=== PATIENT | male | born 1955 | race Hispanic/Latino ===

== ENCOUNTER 2016-08-12 07:52 | Inpatient (IN) | payer MEDICAID ==
[2016-08-12 07:53] VITALS: BMI 23.3
[2016-08-12 08:37] LABS: BASO # 0.1 K/uL (0.0-0.2); BASO % 0.7 % (0.0-2.0); EOS # 0.3 K/uL (0.0-0.7); EOS % 3.4 % (0.0-4.0); HEMOGLOBIN 12.7 g/dL (12.0-18.0); LYMPH # 2.5 K/uL (1.0-4.3); LYMPH % 31.7 % (20.0-40.0); MEAN CELL VOLUME 89.9 fl (80.0-94.0); MEAN CORPUSCULAR HEMOGLOBIN 31.1 pg (27.0-31.0); MEAN CORPUSCULAR HGB CONC 34.6 g/dL (33.0-37.0); MEAN PLATELET VOLUME 8.5 fl (7.2-11.7); MONO # 0.7 K/uL (0.0-0.8); MONO % 8.9 % (0.0-10.0); NEUT # 4.3 K/uL (1.8-7.0); NEUT % 55.3 % (50.0-75.0); NRBC % 0.1 % (0.0-0.0); RBC 4.08 Mil/uL (4.40-5.90); RED CELL DISTRIBUTION WIDTH 13.6 % (11.5-14.5); WHITE BLOOD COUNT 7.8 K/uL (4.8-10.8)
--- NOTE | 2016-08-12 08:39 | CT ---
PROCEDURE: CT HEAD WITHOUT CONTRAST. HISTORY: code stroke COMPARISON: 10/18/2015 TECHNIQUE: Axial computed tomography images were obtained through the head/brain without intravenous contrast. Radiation dose: Total exam DLP = 1412.83 mGy-cm. This CT exam was performed using one or more of the following dose reduction techniques: Automated exposure control, adjustment of the mA and/or kV according to patient size, and/or use of iterative reconstruction technique. FINDINGS: HEMORRHAGE: No intracranial hemorrhage. BRAIN: Extension of previously seen left cerebral hemispheric areas of encephalomalacia likely consistent with multiple old infarcts. The areas of encephalomalacia has increased involving the majority of the left cerebral hemisphere. New areas of hypodensities noted in the left peripheral frontal lobe. Subacute infarcts cannot be entirely excluded. Patchy and confluent hypodensities throughout the bilateral cerebral hemispheric white matter are most likely from chronic small vessel ischemic changes. VENTRICLES: Ex vacuo dilatation of the left lateral ventricle has also increased in extent when compared to the prior CT from 10/18/2015. CALVARIUM: Unremarkable. PARANASAL SINUSES: Unremarkable as visualized. No significant inflammatory changes. MASTOID AIR CELLS: Unremarkable as visualized. No inflammatory changes. OTHER FINDINGS: None. IMPRESSION: Resolution of previously seen left-sided CVA with bowel extending more into the white matter of the left cerebral hemisphere. However, a small underlying acute/subacute infarct cannot be entirely excluded given the scattered hyperdensities. Other findings as above. Discussed with Dr. Nogueira at approximately 8:35 a.m. on 08/12/2016.
--- NOTE | 2016-08-12 08:59 | ED PDOC ---
HPI: Seizure Time Seen by Provider: 08/12/16 07:55 Chief Complaint (Nursing): Syncope Chief Complaint (Provider): Seizure History Per: Family () Additional Complaint(s): 61 y/o male with a past medical history of hypertension, diabetes, and cerebrovascular accident (CVA) with right-sided weakness who presents to the emergency department via EMS accompanied by after she witnessed patient put his head down, stopped talking, and then started shaking around 6am this morning. Denies history of seizures or falls. NIHSS Stroke Scale - Date/Time Evaluation Performed Date Performed: 08/12/16 Time Performed: 07:50 When Was NIHSS Performed: Baseline - How Severe is the Stroke Level of Consciousness: 0=Alert LOC to Questions: 0=Both comments correct Best Gaze: 0=Normal Visual: 0=No visual loss Facial: 0=Normal Motor Arm - Left: 0=No drift Motor Arm - Right: 2=Falls before 10 sec Motor Leg - Left: 0=No drift Motor Leg - Right: 0=No drift Limb Ataxia: 0=Absent Sensory: 0=Normal Best Language: 0=No aphasia Dysarthia: 0=Normal articulation Extinction & Inattention (Neglect): 0=Normal, no object rTPA Inclusion/Exclusion - Refusal of Treatment Patient Refused Treatment: No - Inclusion Criteria for Altepase Patient is 18 years or Older: Yes The Clinical Diagnosis of Ischemic Stroke That is Causing a Potentially Disabling Neurological Deficit: No Time of Onset is Well Established to be Less Than 270 Minute Before Treatment Would Begin: No Risk/Benefit Discussed With Patient/Family Member Present: No - Exclusion Criteria for Altepase Uncontrolled Hypertension at Time of Treatment (Systolic BP above 185 or Diastolic BP above 110 mmHg): No Active Internal Bleeding: No Known Bleeding Diathesis Including but Not Limited to: Platelets Below 100,000/ mm,PTT Above 40 sec After Heparin Use, Current Use of Oral Anitcoagulant With INR Greater Than 1.7 or PT Greater Than 15 secs: No Evidence of an Intracranial Hemorrhage: No Evidence of Major Acute Infarct With Signs Greater Than 1/3 MCA Territory: No Suspicion of Subarachnoid Hemorrhage on Pretreatment Evaluation Even if CT Head Negative For Hemorrhage: No Past Medical History Reviewed: Historical Data, Nursing Documentation, Vital Signs Vital Signs: Last Vital Signs Temp 97.8 F 08/12/16 12:11 Pulse 77 08/12/16 12:11 Resp 18 08/12/16 12:11 BP 113/66 08/12/16 12:11 Pulse Ox 99 08/12/16 12:11 - Medical History PMH: CVA (with right sided weakness), Diabetes, HTN, Hypercholesterolemia Denies: Chronic Kidney Disease - Surgical History Surgical History: No Surg Hx - Family History Family History: States: Unknown Family Hx - Living Arrangements Living Arrangements: With Family - Social History Current smoker - smoking cessation education provided: No Alcohol: Occasional Drugs: Denies - Home Medications Home Medications: Ambulatory Orders Medication Instructions Recorded Atorvastatin [Lipitor] 80 mg PO HS 08/25/15 Bisacodyl [Dulcolax] 10 mg AL DAILY PRN 08/25/15 Famotidine [Pepcid] 20 mg PO DAILY 08/25/15 Insulin Lispro [Humalog] 2 - 8 units SQ ACTID 08/25/15 Lisinopril [Zestril] 2.5 mg PO DAILY 08/25/15 Metoprolol Succinate 25 mg PO DAILY 08/25/15 Sertraline [Zoloft] 25 mg PO DAILY 08/25/15 Tamsulosin [Flomax] 0.4 mg PO HS 08/25/15 Acetaminophen [Tylenol 325mg tab] 325 mg PO Q6 PRN #0 tab 09/17/15 Acetaminophen [Tylenol 325mg tab] 650 mg PO Q6 PRN #0 tab 09/17/15 Aspirin [Ecotrin] 81 mg PO DAILY tabec 09/17/15 GlipiZIDE [Glucotrol] 10 mg PO BIDAC tab 09/17/15 Pantoprazole [Protonix Susp] 40 mg PO DAILY packet 09/17/15 SITagliptin [Januvia] 100 mg PO ACD tab 09/17/15 Cyclobenzaprine [Flexeril] 5 mg PO TID #9 tab 04/21/16 Ibuprofen [Motrin] 400 mg PO TID #20 tab 04/21/16 - Allergies Allergies/Adverse Reactions: Allergies Allergy/AdvReac Type Severity Reaction Status Date / Time No Known Allergies Allergy Verified 07/28/15 22:01 Review of Systems ROS Statement: Except As Marked, All Systems Reviewed And Found Negative Constitutional: Negative for: Other (no falls) Physical Exam - Reviewed Nursing Documentation Reviewed: Yes Vital Signs Reviewed: Yes - Physical Exam Appears: Positive for: Non-toxic, No Acute Distress Head Exam: Positive for: ATRAUMATIC, NORMAL INSPECTION, NORMOCEPHALIC Skin: Positive for: Normal Color, Warm, Dry Neck: Positive for: Normal, Supple Cardiovascular/Chest: Positive for: Regular Rate, Rhythm. Negative for: Murmur Respiratory: Positive for: Normal Breath Sounds. Negative for: Accessory Muscle Use, Respiratory Distress Extremity: Positive for: Normal ROM, Other (Right-sided weakness to the right upper extremity. Lower right and leg are good in strength. ) Neurologic/Psych: Positive for: Alert, Oriented - Laboratory Results Result Diagrams: 08/12/16 08:20 08/12/16 08:20 - ECG O2 Sat by Pulse Oximetry: 97 (RA) Pulse Ox Interpretation: Normal Medical Decision Making Medical Decision Making: Time: 08:09 Initial impression: Seizure Initial plan: --Head CT --Type and Screen --Electrocardiogram --COMP Metabolic Panel --Hemoglobin A1C --Lipid panel --Troponin I Stat --EKG-ED --Partial Thromboplastin Time (COAG) --Prothrombin Time (COAG) --Chest Portable (RAD) --security monitor CONT --IV Insertion Time: 8:37 --Head CT FINDINGS: HEMORRHAGE: No intracranial hemorrhage. BRAIN: Extension of previously seen left cerebral hemispheric areas of encephalomalacia likely consistent with multiple old infarcts. The areas of encephalomalacia has increased involving the majority of the left cerebral hemisphere. New areas of hypodensities noted in the left peripheral frontal lobe. Subacute infarcts cannot be entirely excluded. Patchy and confluent hypodensities throughout the bilateral cerebral hemispheric white matter are most likely from chronic small vessel ischemic changes. VENTRICLES: Ex vacuo dilatation of the left lateral ventricle has also increased in extent when compared to the prior CT from 10/18/2015. CALVARIUM: Unremarkable. PARANASAL SINUSES: Unremarkable as visualized. No significant inflammatory changes. MASTOID AIR CELLS: Unremarkable as visualized. No inflammatory changes. OTHER FINDINGS: None. IMPRESSION: Resolution of previously seen left-sided CVA with bowel extending more into the white matter of the left cerebral hemisphere. However, a small underlying acute/ subacute infarct cannot be entirely excluded given the scattered hyperdensities. Other findings as above. Discussed with Dr. Nogueira at approximately 8:35 a.m. on 08/12/2016. Time: 9:11 --Chest X-ray FINDINGS: LUNGS: No focal airspace opacity. PLEURA: No significant pleural effusion identified, no pneumothorax apparent.Biapical pleural parenchymal thickening noted. Previously identified right pleural effusion not seen. CARDIOVASCULAR: Normal. OSSEOUS STRUCTURES: The osseous structures demonstrate degenerative changes. VISUALIZED UPPER ABDOMEN: Upper abdomen is suboptimally evaluated. OTHER FINDINGS: None. IMPRESSION: No focal airspace opacity. Time: 09:20 --EKG: Normal sinus rhythm at 84 bpm with low voltage. --Neurology Consult Routine: Spoke to Dr. Derek Marie who advised not to give patient aspirin due to history of hemorrhagic stroke. Recommended to give patient 500 mg of Keppra because story sounded like seizure and an MRI and EEG to get completed tomorrow. will not give asa due to prior hemmoragic stroke --Admit to hospital routine: Admitted as inpatient to telemetry for stroke versus seizure under the care of Dr. Gregory Edge --Keppra 500 mg Scribe Attestation: Documented by Racheal Mendez, acting as a scribe for Michel Macdonald MD. Provider Scribe Attestation: All medical record entries made by the Scribe were at my direction and personally dictated by me. I have reviewed the chart and agree that the record accurately reflects my personal performance of the history, physical exam, medical decision making, and the department course for this patient. I have also personally directed, reviewed, and agree with the discharge instructions and disposition. Disposition - Clinical Impression Clinical Impression: Seizure - Patient ED Disposition Is Patient to be Admitted: Yes - Disposition Disposition Time: 09:00 Condition: STABLE
[2016-08-12 09:05] LABS: ALB/GLOB RATIO 1.4 (1.0-2.1); ALBUMIN 4.1 g/dL (3.5-5.0); ALT/SGPT 51 U/L (21-72); AST/SGOT 27 U/L (17-59); BLOOD UREA NITROGEN 20 mg/dl (9-20); CALCIUM 9.2 mg/dL (8.4-10.2); GFR AFRICAN-AMERICAN > 60; GFR NON-AFRICAN AMERICAN > 60; HDL CHOLESTEROL 49 MG/DL (30-70)
[2016-08-12 09:12] LABS: INR 1.1 (0.9-1.2); PARTIAL THROMBOPLASTIN TIME 28.6 Seconds (25.6-37.1); PROTHROMBIN TIME 12.3 Seconds (9.8-13.1)
--- NOTE | 2016-08-12 09:13 | RAD ---
HISTORY: code stroke COMPARISON: 07/28/2015 FINDINGS: LUNGS: No focal airspace opacity. PLEURA: No significant pleural effusion identified, no pneumothorax apparent.Biapical pleural parenchymal thickening noted. Previously identified right pleural effusion not seen. CARDIOVASCULAR: Normal. OSSEOUS STRUCTURES: The osseous structures demonstrate degenerative changes. VISUALIZED UPPER ABDOMEN: Upper abdomen is suboptimally evaluated. OTHER FINDINGS: None. IMPRESSION: No focal airspace opacity.
[2016-08-12 09:16] LABS: LDL CHOLESTEROL 50 mg/dL (0-129)
[2016-08-12] MEDS ORDERED: levETIRAcetam 500 MG in Sodium Chloride 0.9% 100 ML IVPB STA (09:19)
--- NOTE | 2016-08-12 09:52 | CARD ---
APPROVED REPORT EKG Measurement Heart [id number] CO [id number] [id number] <Conclusion> Normal sinus rhythm Low voltage QRS Septal infarct, age undetermined Abnormal ECG
--- NOTE | 2016-08-12 10:40 | CP.PCM.HP ---
History of Present Illness - History of Present Illness History of Present Illness: 61 yo male with history of previous CVA with residual right sided weakness and aphasia, CAD, DM2, HTN and HLD was noted by this morning with his head down while sitting on a sofa. She was checking him out when he suddenly went into generalized seizure followed with loss of consciousness. His called 911 and patient was still unconscious when EMS arrived. He only regained consciousness when EMS was about to carry him out to the hospital. There was no involuntary micturition and patient did not appear confuse. He denied chest pain , SOB or headache. Present on Admission - Present on Admission Any Indicators Present on Admission: No History of DVT/PE: No History of Uncontrolled Diabetes: No Urinary Catheter: No Decubitus Ulcer Present: No Review of Systems - Review of Systems Systems not reviewed;Unavailable: Language Barrier (aphasic) Past Patient History - Tetanus Immunizations Tetanus Immunization: Unknown - Past Medical History & Family History Past Medical History?: Yes Pertinent Family History: unable to provide - Past Social History Smoking Status: Never Smoked Alcohol: Occasional Drugs: Denies Home Situation {Lives}: Other (with ) - CARDIAC Hx Cardiac Disorders: Yes (HTN,HLD) Hx Heart Attack: Yes (NSTEMI, 2016) Hx Hypercholesterolemia: Yes Hx Hypertension: Yes - PULMONARY Hx Respiratory Disorders: No - NEUROLOGICAL Hx Neurological Disorder: Yes (CVA) HX Cerebrovascular Accident: Yes - HEENT Hx HEENT Problems: No - RENAL Hx Chronic Kidney Disease: No - ENDOCRINE/METABOLIC Hx Endocrine Disorders: Yes Hx Diabetes Mellitus Type 2: Yes - HEMATOLOGICAL/ONCOLOGICAL Hx Blood Disorders: No - INTEGUMENTARY Hx Dermatological Problems: No - MUSCULOSKELETAL/RHEUMATOLOGICAL Hx Musculoskeletal Disorders: No - GASTROINTESTINAL Hx Gastrointestinal Disorders: No - GENITOURINARY/GYNECOLOGICAL Hx Genitourinary Disorders: No - PSYCHIATRIC Hx Psychophysiologic Disorder: No - SURGICAL HISTORY Hx Surgeries: No - ANESTHESIA Hx Anesthesia: No Meds Allergies/Adverse Reactions: Allergies Allergy/AdvReac Type Severity Reaction Status Date / Time No Known Allergies Allergy Verified 07/28/15 22:01 Physical Exam - Constitutional Appears: No Acute Distress - Head Exam Head Exam: ATRAUMATIC - Eye Exam Eye Exam: absent: Scleral icterus - ENT Exam ENT Exam: Mucous Membranes Moist - Neck Exam Neck exam: Negative for: Meningismus - Respiratory Exam Respiratory Exam: absent: Rhonchi, Wheezes, Respiratory Distress - Cardiovascular Exam Cardiovascular Exam: REGULAR RHYTHM, +S1, +S2 - GI/Abdominal Exam GI & Abdominal Exam: Soft. absent: Tenderness - Rectal Exam Rectal Exam: Deferred - Extremities Exam Extremities exam: Negative for: pedal edema - Neurological Exam Neurological exam: Motor Sensory Deficit (right upper and lower limb weakness) - Psychiatric Exam Psychiatric exam: Flat Affect - Skin Skin Exam: Dry, Intact Results - Vital Signs Recent Vital Signs: Last Vital Signs Temp 97.8 F 08/12/16 09:06 Pulse 78 08/12/16 09:44 Resp 16 08/12/16 09:44 BP 132/69 08/12/16 09:44 Pulse Ox 97 08/12/16 09:36 - Labs Result Diagrams: 08/12/16 08:20 08/12/16 08:20 Assessment & Plan (1) Seizure Status: Acute Comment: admit to telemetry. seizure precaution. Ativan 1mg IV q 4hrs prn. received Keppra 500mg IV per recommendation by neurologist. neurology consult with Dr Marie (called by ER). MRI. EEG (2) History of CVA (cerebrovascular accident) Status: Chronic Comment: refer to PT for evaluation and management. continue ASA, statin and BP control. pt was on 81mg ASA when discharged last year. Dr Marie agreed to continue low dose ASA (3) CAD (coronary artery disease) Status: Chronic Comment: Troponin negative for ischemic events. denied chest pain or SOB. continue ASA, statin and Metoprolol (4) HTN (hypertension) Status: Chronic Comment: BP controlled. continue Lisinopril and Metoprolol (5) HLD (hyperlipidemia) Status: Chronic Comment: Lipitor 80mg PO HS (6) DM2 (diabetes mellitus, type 2) Status: Chronic Comment: BS uncontrolled. continue Januvia and Glucotrol. accuchek ACHS with low Lispro coverage. diabetic diet. HgA1C, BMP in am (7) DVT prophylaxis Status: Acute Comment: Venodyne boots while in bed
[2016-08-12] MEDS: Insulin Lispro (humaLOG) 100 Units/ml Inj SC SCH ×3 (12:45→22:47)
--- NOTE | 2016-08-12 13:30 | CP.PCM.CON ---
History of Present Illness - History of Present Illness History of Present Illness: Mr. Fierro is a 61-year-old man with a past medical history of left MCA ischemic stroke and hemorrhagic conversion who was noted by his to drop his head and developed generalized shaking and abnormal movements. This lasted for several minutes then subsided. The patient has no recollection of the event and says that he felt tired and sleepy afterward. Review of Systems - Review of Systems Systems not reviewed;Unavailable: Other Review of Systems: The patient is aphasic and has a difficult time providing a reliable ROS. Past Patient History - Tetanus Immunizations Tetanus Immunization: Unknown - Past Medical History & Family History Past Medical History?: Yes - Past Social History Smoking Status: Never Smoked - CARDIAC Hx Cardiac Disorders: Yes (HTN,HLD) Hx Heart Attack: Yes (NSTEMI, 2016) Hx Hypercholesterolemia: Yes Hx Hypertension: Yes - PULMONARY Hx Respiratory Disorders: No - NEUROLOGICAL Hx Neurological Disorder: Yes (CVA) HX Cerebrovascular Accident: Yes (07/28/15) - HEENT Hx HEENT Problems: No - RENAL Hx Chronic Kidney Disease: No - ENDOCRINE/METABOLIC Hx Endocrine Disorders: Yes Hx Diabetes Mellitus Type 2: Yes - HEMATOLOGICAL/ONCOLOGICAL Hx Blood Disorders: No Hx AIDS: No Hx Human Immunodeficiency Virus (HIV): No - INTEGUMENTARY Hx Dermatological Problems: No - MUSCULOSKELETAL/RHEUMATOLOGICAL Hx Musculoskeletal Disorders: No Hx Falls: Yes - GASTROINTESTINAL HX Swallowing Problems: Yes (POST PEG TUBE 07/28/15) - GENITOURINARY/GYNECOLOGICAL Hx Genitourinary Disorders: No - PSYCHIATRIC Hx Psychophysiologic Disorder: No Hx Substance Use: No - SURGICAL HISTORY Hx Surgeries: No - ANESTHESIA Hx Anesthesia: Yes Has any member of the family had a problem w/ anesthesia?: No Meds Allergies/Adverse Reactions: Allergies Allergy/AdvReac Type Severity Reaction Status Date / Time No Known Allergies Allergy Verified 07/28/15 22:01 - Medications Medications: Current Medications Acetaminophen (Tylenol 325mg Tab) 650 mg PO Q6 PRN PRN Reason: Pain, severe (8-10) Aspirin (Ecotrin) 81 mg PO DAILY [facility] Last Admin: 08/12/16 12:46 Dose: 81 mg Atorvastatin Calcium (Lipitor) 80 mg PO HS [facility] Bisacodyl (Dulcolax) 10 mg SC DAILY PRN PRN Reason: Constipation Famotidine (Pepcid) 20 mg PO DAILY [facility] Last Admin: 08/12/16 12:48 Dose: 20 mg Glipizide (Glucotrol) 10 mg PO BIDAC [facility] Home Med (Lisinopril [Zestril]) 2.5 mg PO DAILY [facility] Levetiracetam 500 mg/ Sodium (Chloride) 105 mls @ 210 mls/hr IVPB Q12 [facility] Insulin Human Lispro (Humalog) 0 units SC ACHS [facility] PRN Reason: Protocol Last Admin: 08/12/16 12:45 Dose: 1 unit Metoprolol Succinate (Toprol Xl) 25 mg PO DAILY [facility] Sertraline HCl (Zoloft) 25 mg PO DAILY [facility] Sitagliptin Phosphate (Januvia) 100 mg PO ACD [facility] Tamsulosin HCl (Flomax) 0.4 mg PO HS [facility] Physical Exam - Constitutional Appears: Well - Head Exam Head Exam: ATRAUMATIC, NORMAL INSPECTION, NORMOCEPHALIC - Eye Exam Eye Exam: EOMI, Normal appearance, PERRL - ENT Exam ENT Exam: Mucous Membranes Moist, Normal Exam - Neck Exam Neck exam: Positive for: Normal Inspection - Respiratory Exam Respiratory Exam: Clear to Auscultation Bilateral, NORMAL BREATHING PATTERN - Cardiovascular Exam Cardiovascular Exam: REGULAR RHYTHM, +S1, +S2 - GI/Abdominal Exam GI & Abdominal Exam: Normal Bowel Sounds, Soft. absent: Tenderness - Neurological Exam Neurological exam: Abnormal Gait, CN II-XII Intact, Oriented x3 Additional comments: Productive aphasia with difficulty with repetition. Receptive aphasia also present. No dysarthria noted. Right side strength is 3/5 proximally and 4/5 distally, left side strength is 5/5 proximally and distally. He has contractures on the left upper and lower extremity causing difficulty with limb extension. Reflexes are brisk on the right. Plantar response is upgoing on the left. Gait was not assessed. - Psychiatric Exam Psychiatric exam: Normal Affect, Normal Mood - Skin Skin Exam: Dry, Intact, Normal Color, Warm Results - Vital Signs Recent Vital Signs: Last Vital Signs Temp 97.8 F 08/12/16 12:11 Pulse 77 08/12/16 12:11 Resp 18 08/12/16 12:11 BP 113/66 08/12/16 12:11 Pulse Ox 99 08/12/16 12:11 - Labs Result Diagrams: 08/12/16 08:20 08/12/16 08:20 Labs: Laboratory Results - last 24 hr 08/12/16 12:34 POC Glucose (mg/dL) 195 H - Imaging and Cardiology CT scan - head Status: Image reviewed by me, Report reviewed by me (Large chronic left MCA ischemic stroke with slight residual hemorrhagic components and laminar necrosis. ) Assessment & Plan (1) Seizure Assessment and Plan: This is likely due to the previous cortical damage in the left hemisphere. Will start Keppra 500 mg PO BID and obtain an MRI and EEG to evaluate. Continue Q2 hour neuro-checks, seizure precautions, PT/OT eval and treat, secondary stroke prevention with aspirin 81 mg daily. Thank you. Status: Acute Priority: High
[2016-08-12] MEDS ORDERED: levETIRAcetam 500 MG in Sodium Chloride 0.9% 100 ML IVPB SCH (21:00)
[2016-08-12] MEDS ORDERED: Patient's Own Med (Atorvastatin [Lipitor] 80 MG) PO SCH (22:00)
[2016-08-13] MEDS: Insulin Lispro (humaLOG) 100 Units/ml Inj SC SCH ×4 (06:34→22:12)
[2016-08-13 07:04] LABS: BASO % 0.5 % (0.0-2.0); EOS # 0.3 K/uL (0.0-0.7); EOS % 2.7 % (0.0-4.0); HEMOGLOBIN 12.1 g/dL (12.0-18.0); LYMPH # 1.7 K/uL (1.0-4.3); LYMPH % 17.6 % (20.0-40.0); MEAN CELL VOLUME 88.8 fl (80.0-94.0); MEAN CORPUSCULAR HEMOGLOBIN 30.5 pg (27.0-31.0); MEAN CORPUSCULAR HGB CONC 34.4 g/dL (33.0-37.0); MEAN PLATELET VOLUME 8.5 fl (7.2-11.7); MONO # 0.8 K/uL (0.0-0.8); MONO % 8.8 % (0.0-10.0); NEUT # 6.6 K/uL (1.8-7.0); NEUT % 70.4 % (50.0-75.0); RBC 3.95 Mil/uL (4.40-5.90); RED CELL DISTRIBUTION WIDTH 13.1 % (11.5-14.5); WHITE BLOOD COUNT 9.4 K/uL (4.8-10.8)
[2016-08-13 07:24] LABS: BLOOD UREA NITROGEN 23 mg/dl (9-20); CALCIUM 9.2 mg/dL (8.4-10.2); GFR AFRICAN-AMERICAN > 60; GFR NON-AFRICAN AMERICAN > 60
[2016-08-13] MEDS: Metoprolol Succinate 25 mg XL Tab PO SCH (09:13)
--- NOTE | 2016-08-13 13:11 | MRI ---
PROCEDURE: MRI BRAIN WITHOUT CONTRAST HISTORY: new onset seizure COMPARISON: Noncontrast head CT from 08/12/2016. TECHNIQUE: Multiplanar, multisequence MR images of the brain were obtained without intravenous contrast enhancement. FINDINGS: HEMORRHAGE: None DWI: No evidence of an acute or early subacute infarction. BRAIN PARENCHYMA: There is a large area of cystic encephalomalacia and gliosis in the left parietal lobe with cortical laminar necrosis. There is parietal lobe volume loss and ex vacuo dilatation of the left lateral ventricle. There is no mass, mass effect or abnormal extra-axial fluid collection. There are mild chronic microangiopathic changes. The midline sagittal structures are normal. VENTRICLES: There is mild age-related global parenchymal volume loss and proportionate enlargement of the ventricles and cortical sulci. CRANIUM: There is normal bone marrow signal pattern. ORBITS: Grossly unremarkable. PARANASAL SINUSES/MASTOIDS: Predominantly clear. VASCULAR SYSTEM: There are normal signal voids in the larger intracranial arteries. OTHER FINDINGS: None. IMPRESSION: 1. No acute intracranial abnormality. 2. Cystic encephalomalacia and gliosis with cortical laminar necrosis in the left parietal lobe, sequela of remote left MCA territory infarction. 3. Mild chronic microangiopathic changes and mild age-related global parenchymal volume loss.
--- NOTE | 2016-08-13 13:20 | CP.PCM.PN ---
Subjective - Date & Time of Evaluation Date of Evaluation: 08/13/16 Time of Evaluation: 13:00 - Subjective Subjective: Pt seen and examined. Denied any complaint. Unable to converse fully because although he was able to articulate well the statement did not make sense. Had problem getting the right words. Objective - Vital Signs/Intake and Output Vital Signs (last 24 hours): Temp Pulse Resp BP Pulse Ox 98.0 F 73 18 116/69 98 08/13/16 08:34 08/13/16 08:44 08/13/16 08:34 08/13/16 08:44 08/13/16 08:34 - Medications Medications: Current Medications Acetaminophen (Tylenol 325mg Tab) 650 mg PO Q6 PRN PRN Reason: Pain, severe (8-10) Aspirin (Ecotrin) 81 mg PO DAILY [facility] Last Admin: 08/13/16 08:44 Dose: 81 mg Atorvastatin Calcium (Lipitor) 80 mg PO HS [facility] Last Admin: 08/13/16 08:44 Dose: 80 mg Bisacodyl (Dulcolax) 10 mg [place] DAILY PRN PRN Reason: Constipation Famotidine (Pepcid) 20 mg PO DAILY [facility] Last Admin: 08/12/16 12:48 Dose: 20 mg Glipizide (Glucotrol) 10 mg PO BIDAC [facility] Last Admin: 08/13/16 08:28 Dose: 10 mg Levetiracetam 500 mg/ Sodium (Chloride) 105 mls @ 210 mls/hr IVPB Q12 [facility] Last Admin: 08/12/16 21:31 Dose: 210 mls/hr Insulin Human Lispro (Humalog) 0 units SC ACHS [facility] PRN Reason: Protocol Last Admin: 08/13/16 06:34 Dose: Not Given Lisinopril (Zestril) 2.5 mg PO DAILY [facility] Last Admin: 08/13/16 08:44 Dose: 2.5 mg Lisinopril (Zestril) 2.5 mg PO DAILY [facility] Last Admin: 08/12/16 16:49 Dose: 2.5 mg Metoprolol Succinate (Toprol Xl) 25 mg PO DAILY [facility] Sertraline HCl (Zoloft) 25 mg PO DAILY [facility] Last Admin: 08/13/16 08:45 Dose: 25 mg Sitagliptin Phosphate (Januvia) 100 mg PO ACD [facility] Last Admin: 08/12/16 17:59 Dose: 100 mg Tamsulosin HCl (Flomax) 0.4 mg PO HS [facility] Last Admin: 08/12/16 21:31 Dose: 0.4 mg - Labs Labs: 08/13/16 05:00 08/13/16 05:00 PT 12.3 Seconds (9.8-13.1) 08/12/16 08:20 INR 1.1 (0.9-1.2) 08/12/16 08:20 APTT 28.6 Seconds (25.6-37.1) 08/12/16 08:20 - Constitutional Appears: No Acute Distress - Head Exam Head Exam: ATRAUMATIC - Eye Exam Eye Exam: absent: Scleral icterus - ENT Exam ENT Exam: Mucous Membranes Moist - Neck Exam Neck Exam: absent: Meningismus - Respiratory Exam Respiratory Exam: absent: Rhonchi, Wheezes, Respiratory Distress - Cardiovascular Exam Cardiovascular Exam: REGULAR RHYTHM, +S1, +S2 - GI/Abdominal Exam GI & Abdominal Exam: Soft. 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 (1) Seizure no further seizure activity since admission continue seizure precaution. Ativan 1mg IV q 4hrs prn. continue Keppra 500mg IV q 12hrs neurology consult with Dr Marie MRI & EEG results pending (2) History of CVA (cerebrovascular accident) refer to PT for evaluation and management. continue ASA, statin and BP control. Dr Marie agreed to continue low dose ASA (3) CAD (coronary artery disease) asymptomatic continue ASA, statin and Metoprolol (4) HTN (hypertension) BP controlled. continue Lisinopril and Metoprolol (5) HLD (hyperlipidemia) Lipitor 80mg PO HS (6) DM2 (diabetes mellitus, type 2) BS controlled. continue Januvia and Glucotrol. accuchek ACHS with low Lispro coverage. HgA1c: 7.8 (7) DVT prophylaxis Venodyne boots while in bed
--- NOTE | 2016-08-13 16:05 | CP.PCM.PN ---
Subjective - Date & Time of Evaluation Date of Evaluation: 08/13/16 Time of Evaluation: 13:00 - Subjective Subjective: Mr. Fierro was seen and examined at bedside. His was present and informed me that since his seizure, the patient has been more irritable. I expressed my concern that it may actually be from the [place] since it can cause some irritability. I discussed changing to Depakote, which is a good seizure medication that has mood stabilizing effects as well. Furthermore, the patient has had a significant amount of weight loss and Depakote may help with that as well. Objective - Vital Signs/Intake and Output Vital Signs (last 24 hours): Temp Pulse Resp BP Pulse Ox 98.0 F 68 18 102/66 98 08/13/16 08:34 08/13/16 15:42 08/13/16 08:34 08/13/16 15:42 08/13/16 15:42 - Medications Medications: Current Medications Acetaminophen (Tylenol 325mg Tab) 650 mg PO Q6 PRN PRN Reason: Pain, severe (8-10) Aspirin (Ecotrin) 81 mg PO DAILY [facility] Last Admin: 08/13/16 08:44 Dose: 81 mg Atorvastatin Calcium (Lipitor) 80 mg PO HS [facility] Last Admin: 08/13/16 08:44 Dose: 80 mg Bisacodyl (Dulcolax) 10 mg [place] DAILY PRN PRN Reason: Constipation Famotidine (Pepcid) 20 mg PO DAILY [facility] Last Admin: 08/12/16 12:48 Dose: 20 mg Glipizide (Glucotrol) 10 mg PO BIDAC [facility] Last Admin: 08/13/16 08:28 Dose: 10 mg Levetiracetam 500 mg/ Sodium (Chloride) 105 mls @ 210 mls/hr IVPB Q12 [facility] Last Admin: 08/12/16 21:31 Dose: 210 mls/hr Insulin Human Lispro (Humalog) 0 units SC ACHS [facility] PRN Reason: Protocol Last Admin: 08/13/16 06:34 Dose: Not Given Lisinopril (Zestril) 2.5 mg PO DAILY [facility] Last Admin: 08/13/16 08:44 Dose: 2.5 mg Lisinopril (Zestril) 2.5 mg PO DAILY [facility] Last Admin: 08/12/16 16:49 Dose: 2.5 mg Metoprolol Succinate (Toprol Xl) 25 mg PO DAILY [facility] Sertraline HCl (Zoloft) 25 mg PO DAILY [facility] Last Admin: 08/13/16 08:45 Dose: 25 mg Sitagliptin Phosphate (Januvia) 100 mg PO ACD [facility] Last Admin: 08/12/16 17:59 Dose: 100 mg Tamsulosin HCl (Flomax) 0.4 mg PO HS [facility] Last Admin: 08/12/16 21:31 Dose: 0.4 mg - Labs Labs: 08/13/16 05:00 08/13/16 05:00 PT 12.3 Seconds (9.8-13.1) 08/12/16 08:20 INR 1.1 (0.9-1.2) 08/12/16 08:20 APTT 28.6 Seconds (25.6-37.1) 08/12/16 08:20 - Neurological Exam Additional comments: Neurologically unchanged compared with yesterday's examination. Assessment and Plan (1) Seizure Assessment & Plan: Will switch to depakote 500 mg BID and stop Keppra. PT/OT eval is recommended. The patient may benefit from more rehab since he appears to be deconditioned. Status: Acute
[2016-08-13] MEDS: Divalproex 500 mg DR(BID formulation) PO SCH (17:02)
[2016-08-14] MEDS: Insulin Lispro (humaLOG) 100 Units/ml Inj SC SCH ×3 (06:39→13:23)
[2016-08-14] MEDS: Divalproex 500 mg DR(BID formulation) PO SCH (09:47)
[2016-08-14] MEDS: Metoprolol Succinate 25 mg XL Tab PO SCH (09:50)
--- NOTE | 2016-08-14 10:55 | CP.PCM.DIS ---
Provider - Provider Date of Admission: 08/12/16 09:20 Attending physician: Gregory Edge MD Primary care physician: Dr Kahn Consults: Neurology: Dr Marie Time Spent in preparation of Discharge (in minutes): 35 Diagnosis - Discharge Diagnosis (1) Seizure Status: Acute Priority: High (2) History of CVA (cerebrovascular accident) Status: Chronic (3) CAD (coronary artery disease) Status: Chronic (4) DM2 (diabetes mellitus, type 2) Status: Chronic (5) HLD (hyperlipidemia) Status: Chronic (6) HTN (hypertension) Status: Chronic (7) DVT prophylaxis Status: Acute Hospital Course - Lab Results Lab Results: Most Recent Lab Values WBC 9.4 K/uL (4.8-10.8) 08/13/16 05:00 RBC 3.95 Mil/uL (4.40-5.90) L 08/13/16 05:00 Hgb 12.1 g/dL (12.0-18.0) 08/13/16 05:00 Hct 35.1 % (35.0-51.0) 08/13/16 05:00 MCV 88.8 fl (80.0-94.0) 08/13/16 05:00 MCH 30.5 pg (27.0-31.0) 08/13/16 05:00 MCHC 34.4 g/dL (33.0-37.0) 08/13/16 05:00 RDW 13.1 % (11.5-14.5) 08/13/16 05:00 Plt Count 165 K/uL (130-400) 08/13/16 05:00 MPV 8.5 fl (7.2-11.7) 08/13/16 05:00 Neut % (Auto) 70.4 % (50.0-75.0) 08/13/16 05:00 Lymph % (Auto) 17.6 % (20.0-40.0) L 08/13/16 05:00 [place] % (Auto) 8.8 % (0.0-10.0) 08/13/16 05:00 Eos % (Auto) 2.7 % (0.0-4.0) 08/13/16 05:00 Baso % (Auto) 0.5 % (0.0-2.0) 08/13/16 05:00 Neut # 6.6 K/uL (1.8-7.0) 08/13/16 05:00 Lymph # 1.7 K/uL (1.0-4.3) 08/13/16 05:00 [place] # 0.8 K/uL (0.0-0.8) 08/13/16 05:00 Eos # 0.3 K/uL (0.0-0.7) 08/13/16 05:00 Baso # 0.0 K/uL (0.0-0.2) 08/13/16 05:00 PT 12.3 Seconds (9.8-13.1) 08/12/16 08:20 INR 1.1 (0.9-1.2) 08/12/16 08:20 APTT 28.6 Seconds (25.6-37.1) 08/12/16 08:20 Sodium 141 mmol/l (132-148) 08/13/16 05:00 Potassium 4.0 MMOL/L (3.6-5.0) 08/13/16 05:00 Chloride 105 mmol/L (98-107) 08/13/16 05:00 Carbon Dioxide 28 mmol/L (22-30) 08/13/16 05:00 Anion Gap 12 (10-20) 08/13/16 05:00 BUN 23 mg/dl (9-20) H 08/13/16 05:00 Creatinine 0.9 mg/dL (0.8-1.5) 08/13/16 05:00 Est GFR ( Amer) > 60 08/13/16 05:00 Est GFR (Non-Af Amer) > 60 08/13/16 05:00 POC Glucose (mg/dL) 129 mg/dL (65-110) H 08/14/16 05:36 Random Glucose 101 mg/dL (75-110) 08/13/16 05:00 Hemoglobin A1c 7.8 % (4.2-6.5) H 08/12/16 08:20 Calcium 9.2 mg/dL (8.4-10.2) 08/13/16 05:00 Total Bilirubin 0.4 mg/dl (0.2-1.3) 08/12/16 08:20 AST 27 U/L (17-59) 08/12/16 08:20 ALT 51 U/L (21-72) 08/12/16 08:20 Alkaline Phosphatase 81 U/L (38-126) 08/12/16 08:20 Troponin I < 0.0120 ng/mL (0.00-0.120) 08/12/16 08:20 Total Protein 7.0 G/DL (6.3-8.2) 08/12/16 08:20 Albumin 4.1 g/dL (3.5-5.0) 08/12/16 08:20 Globulin 2.9 gm/dL (2.2-3.9) 08/12/16 08:20 Albumin/Globulin Ratio 1.4 (1.0-2.1) 08/12/16 08:20 Triglycerides 81 mg/DL (0-149) D 08/12/16 08:20 Cholesterol 115 mg/dL (0-199) 08/12/16 08:20 LDL Cholesterol Direct 50 mg/dL (0-129) 08/12/16 08:20 HDL Cholesterol 49 MG/DL (30-70) 08/12/16 08:20 TSH 3rd Generation 0.53 mIU/ML (0.46-4.68) 08/13/16 05:00 Blood Type O POSITIVE 08/12/16 08:20 Antibody Screen Negative 08/12/16 08:20 BBK History Checked Patient has bt 08/12/16 08:20 - Hospital Course Hospital Course: 61 y/o gent with hx of CVA, CAD, HTN, DM, was brought after a witnessed seizure. Pt has hx of CVA, CT of head showed Encephalomalacia. Pt was started on IV keppra. Neurology consulted. MRI of Brain did not show any acute infarct. PT, OT and Speech Therapy consulted. (1) Seizure Status: Acute Priority: High MRI of Brain : neg infarct Neurology consulted Initially started on IV Keppra- changed to Depakote to improve mood as pt very irritable accdg to PT/OT/Speech Tx consulted- prefers that pt have Outpt Rehab Pt has residual right sided weakness and cognitive impairment from previous CVA (2) History of CVA (cerebrovascular accident) with right Hemiparesis Status: Chronic Discharge Exam - Head Exam Head Exam: ATRAUMATIC, NORMAL INSPECTION, NORMOCEPHALIC - Eye Exam Eye Exam: Normal appearance Pupil Exam: NORMAL ACCOMODATION - ENT Exam ENT Exam: Mucous Membranes Moist, Normal External Ear Exam - Neck Exam Neck exam: Full Rom - Respiratory Exam Respiratory Exam: NORMAL BREATHING PATTERN. absent: Respiratory Distress - Cardiovascular Exam Cardiovascular Exam: REGULAR RHYTHM, +S1, +S2 - GI/Abdominal Exam GI & Abdominal Exam: Normal Bowel Sounds, Soft. absent: Tenderness - Extremities Exam Extremities exam: full ROM, normal capillary refill, pedal pulses present - Back Exam Back exam: FULL ROM. absent: CVA tenderness (L), CVA tenderness (R), NORMAL INSPECTION - Neurological Exam Neurological exam: Alert, Oriented x3, Reflexes Normal Additional comments: mild right hemiparesis - Psychiatric Exam Psychiatric exam: Normal Affect, Normal Mood - Skin Skin Exam: Dry, Normal Color, Warm Discharge Plan - Discharge Medications Prescriptions: Divalproex [Depakoeugenia VALDIVIA(*BID*)] 500 mg PO BID #60 tcp - Follow Up Plan Condition: GOOD Disposition: HOME/ ROUTINE Instructions: Stroke (DC) Additional Instructions: PT,OT and Speech therapy as outpatient 3x/wk for 6 wks ff up with Neurology vilma ff up with Dr Criss whittp Referrals: Migel Kahn MD [Family Provider] -
[2016-08-14 12:36] VITALS: O2SAT 99
[2016-08-14] MEDS ORDERED: Pneumococcal 23-Valent Vaccine IM ONE (15:30)
[2016-08-14 15:46] VITALS: BP 116/64; PULSE 60; RESP 18; TEMP 98.3
== END 2016-08-14 15:45 | disposition home or self-care (01) | DRG 12 ==
LOC: H.ER 07:52 → H.ERHOLD 09:20 → H.TEL 11:22
PROC: 3E0234Z Introduction of Serum, Toxoid and Vaccine into Muscle, Percutaneous Approach (ICD-10-PCS; principal; 2016-08-14)
DX: I69.398 Other sequelae of cerebral infarction (principal); R56.9 Unspecified convulsions; E11.65 Type 2 diabetes mellitus with hyperglycemia; G93.89 Other specified disorders of brain; I10 Essential (primary) hypertension; I69.351 Hemiplegia and hemiparesis following cerebral infarction affecting right dominant side; Z23 Encounter for immunization; I69.320 Aphasia following cerebral infarction; E78.00 Pure hypercholesterolemia, unspecified; I25.10 Atherosclerotic heart disease of native coronary artery without angina pectoris; E78.5 Hyperlipidemia, unspecified; I69.319 Unspecified symptoms and signs involving cognitive functions following cerebral infarction; I25.2 Old myocardial infarction

== ENCOUNTER 2016-11-29 05:42 | Emergency (ER) | payer MEDICAID, OTHER ==
[2016-11-29 05:43] VITALS: BMI 23.3
[2016-11-29 05:56] VITALS: TEMP 97.8
--- NOTE | 2016-11-29 06:44 | ED PDOC ---
HPI: Seizure Time Seen by Provider: 11/29/16 05:48 Chief Complaint (Nursing): Seizure Chief Complaint (Provider): Seizure History Per: Patient, Family () History/Exam Limitations: other (Patient partially aphasic) Associated Symptoms: denies: Bit Tongue, Incontinence Of Urine, Incontinence Of Stool Additional Complaint(s): Patient is a 61 y/o male with a past medical history of diabetes, cerebrovascular accident, seizure disorder, and aphasia who presents to the ED with his complaining of seizure activity. According to , patient hasn' t been able to go to physical therapy since August due to issues with insurance and since then declined in cognitive and physical function. She reports he is barely able to walk and that she has a difficult time keeping him hydrated. She also states that although he is usually complaint with depakote, he missed a dose yesterday morning. Today she heard him call her name from the bathroom and went to find him on the floor having rhythmic shaking for about 10 minutes, with no incontinence or tongue biting. She claims the patient has had no recent illness. PCP: Migel Kahn Past Medical History Reviewed: Historical Data, Nursing Documentation, Vital Signs Vital Signs: Last Vital Signs Temp 97.8 F 11/29/16 05:53 Pulse 78 11/29/16 10:00 Resp 14 11/29/16 10:00 BP 128/75 11/29/16 10:00 Pulse Ox 100 11/29/16 10:00 - Medical History PMH: CVA (with right sided weakness), Diabetes, HTN, Hypercholesterolemia, Seizures (Seizure disorder) Denies: HIV, Chronic Kidney Disease Other PMH: Aphasia - Family History Family History: States: No Known Family Hx, Unknown Family Hx - Social History Current smoker - smoking cessation education provided: No Alcohol: Social Drugs: Denies - Home Medications Home Medications: Ambulatory Orders Medication Instructions Recorded Atorvastatin [Lipitor] 80 mg PO HS 08/25/15 Bisacodyl [Dulcolax] 10 mg [place] DAILY PRN 08/25/15 Famotidine [Pepcid] 20 mg PO DAILY 08/25/15 Insulin Lispro [Humalog] 2 - 8 units SQ ACTID 08/25/15 Lisinopril [Zestril] 2.5 mg PO DAILY 08/25/15 Metoprolol Succinate 25 mg PO DAILY 08/25/15 Sertraline [Zoloft] 25 mg PO DAILY 08/25/15 Tamsulosin [Flomax] 0.4 mg PO HS 08/25/15 Acetaminophen [Tylenol 325mg tab] 325 mg PO Q6 PRN #0 tab 09/17/15 Acetaminophen [Tylenol 325mg tab] 650 mg PO Q6 PRN #0 tab 09/17/15 Aspirin [Ecotrin] 81 mg PO DAILY [facility] 09/17/15 GlipiZIDE [Glucotrol] 10 mg PO BIDAC tab 09/17/15 Pantoprazole [Protonix Susp] 40 mg PO DAILY packet 09/17/15 SITagliptin [Januvia] 100 mg PO ACD tab 09/17/15 Ibuprofen [Motrin Tab] 400 mg PO TID #20 tab 04/21/16 Divalproex [Depakote DR(*BID*)] 500 mg PO BID #60 tcp 08/14/16 - Allergies Allergies/Adverse Reactions: Allergies Allergy/AdvReac Type Severity Reaction Status Date / Time No Known Allergies Allergy Verified 07/28/15 22:01 Review of Systems Review Of Systems: ROS cannot be obtained secondary to pt's inabilty to answer questions. (Limited ROS because patient is partially aphasic and cannot answer questions) Neurological: Positive for: Seizures Physical Exam - Reviewed Nursing Documentation Reviewed: Yes Vital Signs Reviewed: Yes - Physical Exam Appears: Positive for: No Acute Distress Head Exam: Positive for: ATRAUMATIC, NORMOCEPHALIC Skin: Positive for: Normal Color, Warm, Dry Eye Exam: Positive for: Normal appearance, EOMI, PERRL Neck: Positive for: Normal, Painless ROM, Supple Cardiovascular/Chest: Positive for: Regular Rate, Rhythm. Negative for: Murmur Respiratory: Positive for: Normal Breath Sounds. Negative for: Respiratory Distress Gastrointestinal/Abdominal: Positive for: Normal Exam, Soft. Negative for: Tenderness Back: Positive for: Normal Inspection. Negative for: L CVA Tenderness, R CVA Tenderness, Vertebral Tenderness Extremity: Positive for: Normal ROM, Other (4/5 strength in right upper and right lower extremities, 5/5 in left upper and left lower extremities) Neurologic/Psych: Positive for: Alert, Oriented (x3), Cerebellar Tests (normal) Comments: Patient is able to speak his name, follow some commands - Laboratory Results Result Diagrams: 11/29/16 06:43 11/29/16 06:43 - ECG O2 Sat by Pulse Oximetry: 98 (RA) Pulse Ox Interpretation: Normal Medical Decision Making Medical Decision Making: Time: 06:21 Initial Impression: seizure disorder Initial Plan: --CT Head W/O Contrast --EKG --Alcohol Serum --Carbamazepine --Labs --Dilantin --Drug Screen, Urine --Unity --Magnesium --Valproic Acid --Chest XR --Glucose, Blood, POC --Urinalysis --Reevaluation Time: 07:00 -Patient signed out by me to Rayray Ledezma Scribe Attestation: Documented by Winifred Lopez, acting as a scribe for Kevin Stone MD Provider Scribe Attestation: All medical record entries made by the Scribe were at my direction and personally dictated by me. I have reviewed the chart and agree that the record accurately reflects my personal performance of the history, physical exam, medical decision making, and the department course for this patient. I have also personally directed, reviewed, and agree with the discharge instructions and disposition. Disposition - Clinical Impression Clinical Impression: Seizure disorder, Seizure secondary to subtherapeutic anticonvulsant medication - Patient ED Disposition Is Patient to be Admitted: Transfer of Care - Disposition Referrals: Derek Marie MD [Medical Doctor] - 12/01/16 Disposition: Transfer of Care Disposition Time: 07:00 Condition: STABLE Additional Instructions: Continue your medication as prescribed. Return if not better in 3 days. Instructions: Epilepsy (ED) Forms: [email or web address] (Vietnamese) Patient Signed Over To: Rayray Ledezma
[2016-11-29 06:46] LABS: BASO # 0.1 K/uL (0.0-0.2); BASO % 0.5 % (0.0-2.0); EOS # 0.1 K/uL (0.0-0.7); EOS % 0.7 % (0.0-4.0); HEMATOCRIT 36.8 % (35.0-51.0); LYMPH # 0.9 K/uL (1.0-4.3); LYMPH % 5.8 % (20.0-40.0); MEAN CELL VOLUME 92.1 fl (80.0-94.0); MEAN CORPUSCULAR HEMOGLOBIN 30.3 pg (27.0-31.0); MEAN CORPUSCULAR HGB CONC 32.9 g/dL (33.0-37.0); MEAN PLATELET VOLUME 8.8 fl (7.2-11.7); MONO # 1.2 K/uL (0.0-0.8); MONO % 7.5 % (0.0-10.0); NEUT # 13.3 K/uL (1.8-7.0); NEUT % 85.5 % (50.0-75.0); PLATELET COUNT 128 K/uL (130-400); RED CELL DISTRIBUTION WIDTH 14.1 % (11.5-14.5); WHITE BLOOD COUNT 15.5 K/uL (4.8-10.8)
[2016-11-29 07:05] LABS: ALB/GLOB RATIO 1.4 (1.0-2.1); ALCOHOL SERUM < 10 mg/dl (0-10); ALKALINE PHOSPHATASE 88 U/L (38-126); ALT/SGPT 86 U/L (21-72); AST/SGOT 53 U/L (17-59); BILIRUBIN,TOTAL 0.4 mg/dl (0.2-1.3); BLOOD UREA NITROGEN 20 mg/dl (9-20); CALCIUM 9.5 mg/dL (8.4-10.2); CARBON DIOXIDE 22 mmol/L (22-30); CHLORIDE 96 mmol/L (98-107); GFR AFRICAN-AMERICAN > 60; GLUCOSE,RANDOM 145 mg/dL (75-110); MAGNESIUM 1.9 MG/DL (1.6-2.3); POTASSIUM 4.7 MMOL/L (3.6-5.0); SODIUM 135 mmol/l (132-148); TOTAL PROTEIN 6.8 G/DL (6.3-8.2)
[2016-11-29 07:18] LABS: CARBAMAZEPINE < 3.0 ug/mL (4.0-12.0)
[2016-11-29 07:20] LABS: LITHIUM < 0.2 MMOL/L (0.6-1.2); VALPROIC ACID 46.7 ug/mL (50.0-100.0)
--- NOTE | 2016-11-29 07:21 | ED PDOC ---
- Laboratory Results Result Diagrams: 11/29/16 06:43 11/29/16 06:43 Interpretation Of Abn Labs: 15.5 wbc, lactate 4, valproic acid 46.7 - ECG ECG: Positive for: Interpreted By Me, Viewed By Me ECG Rhythm: Positive for: Normal QRS, Normal ST Segment, Sinus Rhythm O2 Sat by Pulse Oximetry: 98 (RA) Pulse Ox Interpretation: Normal - Radiology X-Ray: Interpreted by Me, Viewed By Me X-Ray Interpretation: No Acute Disease - CT Scan/US head Other Rad Studies (CT/US): Read By Radiologist Other Rad Interpretation: no acute Medical Decision Making Medical Decision Making: Time: 07:00 -Patient signed over to me by Kevin Stone Scribe Attestation: Documented by Winifred Lopez, acting as a scribe for Rayray Ledezma MD Provider Scribe Attestation: All medical record entries made by the Scribe were at my direction and personally dictated by me. I have reviewed the chart and agree that the record accurately reflects my personal performance of the history, physical exam, medical decision making, and the department course for this patient. I have also personally directed, reviewed, and agree with the discharge instructions and disposition. 844: Spoke with Dr. Marie. Well known to him. Wants pt. to get depakote 750mg po now. Then pt. to continue his 500mg po bid. Wants pt. to be dc and fu. Likely seizure from subtherapeutic level of depakote. Pt. alert. At his basline. Disposition Counseled Patient/Family Regarding: Studies Performed, Diagnosis - Clinical Impression Clinical Impression: Seizure disorder, Seizure secondary to subtherapeutic anticonvulsant medication - POA Present On Arrival: Falls Or Trauma - Disposition Referrals: Derek Marie MD [Medical Doctor] - 12/01/16 Disposition: Routine/Home Disposition Time: 09:15 Condition: STABLE Additional Instructions: Continue your medication as prescribed. Return if not better in 3 days. Instructions: Epilepsy (ED) Forms: [employer] (Yakut)
[2016-11-29 07:27] VITALS: RESP 14
[2016-11-29 07:56] LABS: VENOUS BLOOD GAS PCO2 46 mmHg (40-60)
[2016-11-29] MEDS ORDERED: Sodium Chloride 0.9% 1,000 ML IV STA (08:40)
[2016-11-29] MEDS ORDERED: Divalproex 250 mg DR(BID formulation) PO ONE (09:00)
[2016-11-29 09:06] LABS: BASOPHIL 1 % (0-2); EOSINOPHIL 1 % (0-7); NEUTROPHIL 83 % (42-75); TOTAL CELLS COUNTED 100
[2016-11-29 09:07] LABS: ACANTHOCYTES SLIGHT; LARGE PLATELETS PRESENT
[2016-11-29 10:00] LABS: RBC URINE < 1 /hpf (0-3); URINE BILIRUBIN NEGATIVE (NEGATIVE); URINE BLOOD NEGATIVE (NEGATIVE); URINE COLOR YELLOW (YELLOW); URINE GLUCOSE (UA) 50 mg/dL (Normal); URINE KETONE 20 mg/dL (NEGATIVE); URINE LEUKOCYTE ESTERASE NEG Leu/uL (Negative); URINE PROTEIN 30 mg/dL (NEGATIVE); URINE UROBILINOGEN 0.2-1.0 mg/dL (0.2-1.0); WBC URINE 1 /hpf (0-5)
[2016-11-29 10:17] VITALS: BP 128/75; PULSE 78
--- NOTE | 2016-11-29 12:20 | CARD ---
APPROVED REPORT EKG Measurement Heart [id number] <Conclusion> Normal sinus rhythm Low voltage QRS Septal infarct, age undetermined Abnormal ECG
--- NOTE | 2016-11-29 12:39 | CT ---
PROCEDURE: CT HEAD WITHOUT CONTRAST. HISTORY: seizure COMPARISON: None available. TECHNIQUE: Axial computed tomography images were obtained through the head/brain without intravenous contrast. Radiation dose: Total exam DLP = 80 weight mGy-cm. This CT exam was performed using one or more of the following dose reduction techniques: Automated exposure control, adjustment of the mA and/or kV according to patient size, and/or use of iterative reconstruction technique. FINDINGS: HEMORRHAGE: No intracranial hemorrhage. BRAIN: No mass effect or edema. Large old left MCA distribution infarct. VENTRICLES: Unremarkable. No hydrocephalus. CALVARIUM: Unremarkable. PARANASAL SINUSES: Unremarkable as visualized. No significant inflammatory changes. MASTOID AIR CELLS: Unremarkable as visualized. No inflammatory changes. OTHER FINDINGS: None. IMPRESSION: No acute hemorrhage.
--- NOTE | 2016-11-29 13:05 | RAD ---
PROCEDURE: CHEST RADIOGRAPH, 1 VIEW HISTORY: seizure COMPARISON: None available. FINDINGS: LUNGS: Clear. PLEURA: No pneumothorax or pleural fluid seen. CARDIOVASCULAR: Normal. OSSEOUS STRUCTURES: No significant abnormalities. VISUALIZED UPPER ABDOMEN: Normal. OTHER FINDINGS: None. IMPRESSION: No active disease.
[2016-12-01 01:05] VITALS: O2SAT 98
== END 2016-11-29 10:13 | disposition home or self-care (01) ==
LOC: H.ER 05:42
DX: G40.909 Epilepsy, unspecified, not intractable, without status epilepticus (principal); E11.9 Type 2 diabetes mellitus without complications; E78.00 Pure hypercholesterolemia, unspecified; I10 Essential (primary) hypertension; Z79.4 Long term (current) use of insulin; Z79.82 Long term (current) use of aspirin
CPT/HCPCS: 70450; 71010; 80053; 80156; 80164; 80178; 80185; 80320; 80324; 80345; 80346; 80349; 80353; 80358; 80361; 81003; 82803; 82948; 83735; 83992; 85025; 93005; 99285; J7040

== ENCOUNTER 2017-05-25 16:04 | Inpatient (IN) | payer MEDICAID ==
[2017-05-25 16:05] VITALS: BMI 23.3
--- NOTE | 2017-05-25 16:43 | ED PDOC ---
HPI: Abdomen Time Seen by Provider: 05/25/17 16:11 Chief Complaint (Nursing): Abdominal Pain Chief Complaint (Provider): Diarrhea History Per: Family History/Exam Limitations: no limitations Onset/Duration Of Symptoms: Persistent Current Symptoms Are (Timing): Still Present Associated Symptoms: Diarrhea, Constipation Additional Complaint(s): 62yo male, brought to ER by his for evaluation as patient has had diarrhea since November 2016. Patient's states he was given medications by his PMD which helped alleviate the diarrhea but the symptoms came back. The patient was evaluated by his PMD on 05/22/17, was given another medication and now is complaining of constipation. Patient's reports he has decreased appetite, has lost weight and refuses to go to physical therapy. Patient currently offers no other medical complaints. Past Medical History Vital Signs: Last Vital Signs Temp 98.2 F 05/26/17 15:46 Pulse 83 05/26/17 15:46 Resp 19 05/26/17 15:46 BP 124/74 05/26/17 15:46 Pulse Ox 98 05/26/17 15:46 - Medical History PMH: CVA (with right sided weakness), Diabetes, HTN, Hypercholesterolemia, Seizures (Seizure disorder) Denies: HIV, Chronic Kidney Disease - Surgical History Surgical History: No Surg Hx - Family History Family History: States: Unknown Family Hx - Home Medications Home Medications: Ambulatory Orders Medication Instructions Recorded Atorvastatin [Lipitor] 80 mg PO HS 08/25/15 Tamsulosin [Flomax] 0.4 mg PO HS 08/25/15 Aspirin [Ecotrin] 81 mg PO DAILY [facility] 09/17/15 Alogliptin Luis Alberto/Metformin HCl 1 tab PO BID 05/25/17 [Alogliptin-Metformin 12.5-500] Cholecalciferol [Vitamin D 1000 IU] 1 tab PO QWK 05/25/17 Levetiracetam [Roweepra] 500 mg PO DAILY 05/25/17 Losartan [Cozaar] 25 mg PO DAILY 05/25/17 - Allergies Allergies/Adverse Reactions: Allergies Allergy/AdvReac Type Severity Reaction Status Date / Time No Known Allergies Allergy Verified 07/28/15 22:01 Review of Systems ROS Statement: Except As Marked, All Systems Reviewed And Found Negative Constitutional: Negative for: Fever, Chills Cardiovascular: Negative for: Chest Pain Respiratory: Negative for: Shortness of Breath Gastrointestinal: Positive for: Diarrhea, Constipation Physical Exam - Reviewed Nursing Documentation Reviewed: Yes Vital Signs Reviewed: Yes - Physical Exam Appears: Positive for: Non-toxic, No Acute Distress Head Exam: Positive for: ATRAUMATIC, NORMAL INSPECTION, NORMOCEPHALIC Skin: Positive for: Normal Color Eye Exam: Positive for: Normal appearance Neck: Positive for: Supple Cardiovascular/Chest: Positive for: Regular Rate, Rhythm Respiratory: Positive for: Normal Breath Sounds. Negative for: Respiratory Distress Gastrointestinal/Abdominal: Positive for: Normal Exam, Soft. Negative for: Tenderness, Mass, Distended, Guarding, Rebound Back: Positive for: Normal Inspection Extremity: Positive for: Normal ROM Neurologic/Psych: Positive for: Alert, Oriented (x 0; patient has history of CVA ), Motor/Sensory Deficits (right sided weakness due to history of CVA) - Laboratory Results Result Diagrams: 05/26/17 05:35 05/26/17 05:35 - ECG O2 Sat by Pulse Oximetry: 98 (RA) Pulse Ox Interpretation: Normal Medical Decision Making Medical Decision Making: Impression: Constipation, decreased appetite Plan: -- Labs -- CXR -- XR Obstructive series Accession No. : [id number] Patient Name / ID : RENA OCAMPO / [id number] Exam Date : 05/25/2017 16:40:02 ( Approved ) Study Comment : Sex / Age : M / 62Y Creator : Chandler Rojas MD Dictator : Chandler Rojas MD Counter Waiter : Bindery Machine Feeder Offbearer : Chandler Rojas MD Approver2 : Report Date : 05/25/2017 17:40:43 My Comment : HISTORY: Constipation COMPARISON: 11/29/2016 TECHNIQUE: Chest PA and lateral FINDINGS: LUNGS: No active pulmonary disease. PLEURA: No significant pleural effusion identified. No pneumothorax apparent. CARDIOVASCULAR: No radiographic findings to suggest acute or significant cardiovascular disease. OSSEOUS STRUCTURES: No significant abnormalities. VISUALIZED UPPER ABDOMEN: Normal. OTHER FINDINGS: None. IMPRESSION: No active disease. No significant interval change compared to the prior examination(s). Accession No. : [id number] Patient Name / ID : RENA OCAMPO / [id number] Exam Date : 05/25/2017 16:48:53 ( Approved ) Study Comment : Sex / Age : M / 62Y Creator : Chandler Rojas MD Dictator : Chandler Rojas MD Counter Waiter : Binder[employer] Machine Feeder Offbearer : Chandler Rojas MD Approver2 : Report Date : 05/25/2017 17:41:13 My Comment : PROCEDURE: Radiographs of the chest and abdomen (obstructive series) HISTORY: Constipation COMPARISON: May 25, 2017. Two-view chest TECHNIQUE: AP radiograph of the chest, with upright and supine radiographs of the abdomen. FINDINGS: CHEST: Lungs: Clear. Cardiovascular: Normal size heart. No pulmonary vascular congestion. Pleura: No pleural fluid. No pneumothorax. Other findings: None. ABDOMEN AND PELVIS: Bowel: Unremarkable bowel gas pattern. No evidence of mechanical obstruction. Free air: None. Bones: Unremarkable. Other findings: None. IMPRESSION: Unremarkable radiographs of chest and abdomen. No evidence of mechanical bowel obstruction. Accession No. : [id number] Patient Name / ID : RENA OCAMPO / [id number] Exam Date : 05/25/2017 19:17:50 ( Approved ) Study Comment : Sex / Age : M / 62Y Creator : geoff farr Dictator : Sandoval Campos MD Counter Waiter : Bindery Machine Feeder Offbearer : Sandoval Campos MD Approver2 : Report Date : 05/25/2017 20:31:56 My Comment : PROCEDURE: CT Abdomen and Pelvis with contrast HISTORY: Vomiting, constipation COMPARISON: None. TECHNIQUE: Contrast dose: 95 cc Omnipaque 300 Radiation dose: Total exam DLP = 285.46 mGy-cm. This CT exam was performed using one or more of the following dose reduction techniques: Automated exposure control, adjustment of the mA and/or kV according to patient size, and/or use of iterative reconstruction technique. FINDINGS: LOWER THORAX: Unremarkable. LIVER: Unremarkable. No gross lesion or ductal dilatation. GALLBLADDER AND BILE DUCTS: Unremarkable. PANCREAS: Unremarkable. No gross lesion or ductal dilatation. SPLEEN: Unremarkable. ADRENALS: Unremarkable. No mass. KIDNEYS AND URETERS: Unremarkable. No hydronephrosis. No solid mass. VASCULATURE: Unremarkable. No aortic aneurysm. BOWEL: Mild retained feces. No bowel obstruction. No abnormal bowel loops. APPENDIX: Not identified. No secondary findings to suggest acute appendicitis. PERITONEUM: Unremarkable. No free fluid. No free air. LYMPH NODES: Unremarkable. No enlarged lymph nodes. BLADDER: Unremarkable. REPRODUCTIVE: Normal prostate BONES: No acute fracture. OTHER FINDINGS: None. IMPRESSION: Unremarkable examination. Mild retained feces common nonspecific. Appendix not visualized. Scribe Attestation: Documented by Suzette Camacho acting as a scribe for Chapis Calle MD. Provider Attestation: All medical record entries made by the Scribe were at my direction and personally dictated by me. I have reviewed the chart and agree that the record accurately reflects my personal performance of the history, physical exam, medical decision making, and the department course for this patient. I have also personally directed, reviewed, and agree with the discharge instructions and disposition. Disposition - Clinical Impression Clinical Impression: Intractable vomiting, Rapidly progressive weakness - Patient ED Disposition Is Patient to be Admitted: Yes - Disposition Disposition Time: 18:43 Condition: STABLE - Pt Status Changed To: Hospital Disposition Of: Inpatient - Admit Certification Admit to Inpatient:: After my assessment, the patient will require hospitalization for at least two midnights. This is because of the severity of symptoms shown, intensity of services needed, and/or the medical risk in this patient being treated as an outpatient. - POA Present On Arrival: None
[2017-05-25 17:37] LABS: ALB/GLOB RATIO 1.1 (1.0-2.1); ALT/SGPT 48 U/L (21-72); AST/SGOT 48 U/L (17-59); BLOOD UREA NITROGEN 18 mg/dl (9-20); CALCIUM 9.6 mg/dL (8.4-10.2); GFR AFRICAN-AMERICAN > 60; GFR NON-AFRICAN AMERICAN > 60
--- NOTE | 2017-05-25 17:42 | RAD ---
HISTORY: Constipation COMPARISON: 11/29/2016 TECHNIQUE: Chest PA and lateral FINDINGS: LUNGS: No active pulmonary disease. PLEURA: No significant pleural effusion identified. No pneumothorax apparent. CARDIOVASCULAR: No radiographic findings to suggest acute or significant cardiovascular disease. OSSEOUS STRUCTURES: No significant abnormalities. VISUALIZED UPPER ABDOMEN: Normal. OTHER FINDINGS: None. IMPRESSION: No active disease. No significant interval change compared to the prior examination(s).
--- NOTE | 2017-05-25 17:43 | RAD ---
PROCEDURE: Radiographs of the chest and abdomen (obstructive series) HISTORY: Constipation COMPARISON: May 25, 2017. Two-view chest TECHNIQUE: AP radiograph of the chest, with upright and supine radiographs of the abdomen. FINDINGS: CHEST: Lungs: Clear. Cardiovascular: Normal size heart. No pulmonary vascular congestion. Pleura: No pleural fluid. No pneumothorax. Other findings: None. ABDOMEN AND PELVIS: Bowel: Unremarkable bowel gas pattern. No evidence of mechanical obstruction. Free air: None. Bones: Unremarkable. Other findings: None. IMPRESSION: Unremarkable radiographs of chest and abdomen. No evidence of mechanical bowel obstruction.
[2017-05-25 17:52] LABS: BASO % 0.5 % (0.0-2.0); EOS # 0.1 K/uL (0.0-0.7); EOS % 1.5 % (0.0-4.0); HEMOGLOBIN 12.5 g/dL (12.0-18.0); LYMPH # 1.5 K/uL (1.0-4.3); LYMPH % 20.8 % (20.0-40.0); MEAN CELL VOLUME 90.8 fl (80.0-94.0); MEAN CORPUSCULAR HEMOGLOBIN 31.1 pg (27.0-31.0); MEAN CORPUSCULAR HGB CONC 34.2 g/dL (33.0-37.0); MEAN PLATELET VOLUME 8.7 fl (7.2-11.7); MONO # 0.7 K/uL (0.0-0.8); MONO % 9.5 % (0.0-10.0); NEUT % 67.7 % (50.0-75.0); RBC 4.01 Mil/uL (4.40-5.90); WHITE BLOOD COUNT 7.5 K/uL (4.8-10.8)
[2017-05-25] MEDS ORDERED: Sodium Chloride 0.9% 1,000 ML IV STA (18:27)
[2017-05-25] MEDS ORDERED: Iohexol 300 100 ML IJ ONE (19:15)
[2017-05-25] MEDS ORDERED: Cholecalciferol 1,000 INTLU TAB PO SCH (20:45)
--- NOTE | 2017-05-25 21:33 | CP.PCM.CON ---
<Andrade Brady - Last Filed: 05/25/17 21:12> History of Present Illness - History of Present Illness History of Present Illness: Surgery Consult note. Dr. Kramer Patient history obtained from patient, patient's and chart review. Brittany historian. 62yo M with PMHx of CVA w/ R sided weakness and aphasia, HTN, CAD, DM, HLD, seizures here for evaluation of lethargy. Patient has been having symptoms of diarrhea and loose stools since November 2016. She has been taking him to his PMD multiple times with similar complaints with no improvement. Recently, patient started seeing new PMD, Ramya Benitez at [facility]. She prescribed Loperimide 2mg PO as needed with mild improvement. Patient's states that he also had a stool sample taken at that time. Upon follow up visit 4 days ago, patient's states that PMD prescribed PO Vancomycin for 14 days due to a "abnormal stool infection" found. She states that the diarrhea resolved since , however, he has been since constipated. She reports no BM for 4 days. She reports that he has been increasingly lethargic since. She states that he has not had the energy to go to physical therapy appointments. Does report decreased appetite. Denies any fevers or chills. Denies any nausea, vomiting, or abdominal pain. No CP/SOB. Does have urinary incontinence for many months. In ED, CT Abd/Pelvis showed no evidence of obstruction, dilated appendix (1cm), and trace perisplenic ascites. PMD: Ramya Benitez PMHx: CVA w residual R-sided weakness and aphasia (no more than few word answers ); CAD, HTN, DM, HLD, seizures PSHx: PEG placement and removal Family Hx: Unknown Social Hx: Denies tobacco; Wine 1-2 glasses daily; Denies any illicit drugs. Lives at home with NKDA Review of Systems - Review of Systems All systems: reviewed and no additional remarkable complaints except - Constitutional Constitutional: Anorexia, Fatigue, Lethargy. absent: Chills, Fever - Cardiovascular Cardiovascular: absent: Chest Pain, Dyspnea - Respiratory Respiratory: absent: Dyspnea - Gastrointestinal Gastrointestinal: Constipation, Diarrhea. absent: Abdominal Pain, Bloating, Hematemesis, Hematochezia, Nausea, Vomiting - Genitourinary Genitourinary: Urinary Incontinence - Neurological Neurological: Abnormal Speech, Weakness (right sided. Residual s/p Hx of CVA) Past Patient History - Tetanus Immunizations Tetanus Immunization: Unknown - Past Medical History & Family History Past Medical History?: Yes - Past Social History Smoking Status: Never Smoked - CARDIAC Hx Hypercholesterolemia: Yes Hx Hypertension: Yes - PULMONARY Hx Respiratory Disorders: No - NEUROLOGICAL HX Cerebrovascular Accident: Yes (rt. sided weakness) Hx Seizures: Yes (Seizure disorder) - HEENT Hx HEENT Problems: No - RENAL Hx Chronic Kidney Disease: No - ENDOCRINE/METABOLIC Hx Endocrine Disorders: Yes Other/Comment: pre-DM - HEMATOLOGICAL/ONCOLOGICAL Hx Human Immunodeficiency Virus (HIV): No - INTEGUMENTARY Hx Dermatological Problems: No - MUSCULOSKELETAL/RHEUMATOLOGICAL Hx Musculoskeletal Disorders: No Hx Falls: Yes - GASTROINTESTINAL HX Swallowing Problems: Yes (POST PEG TUBE 07/28/15) - GENITOURINARY/GYNECOLOGICAL Hx Genitourinary Disorders: No - PSYCHIATRIC Hx Psychophysiologic Disorder: No Hx Substance Use: No - SURGICAL HISTORY Hx Surgeries: No - ANESTHESIA Hx Anesthesia: Yes Meds Allergies/Adverse Reactions: Allergies Allergy/AdvReac Type Severity Reaction Status Date / Time No Known Allergies Allergy Verified 07/28/15 22:01 - Medications Medications: Current Medications Aspirin (Ecotrin) 81 mg PO DAILY [facility] Cholecalciferol (Vitamin D) 1 intlu PO QWK [facility] Home Med (Alogliptin Luis Alberto/Metformin Hcl [Alogliptin-Metformin 12.5-500]) 1 tab PO BID [facility] Home Med (Atorvastatin [Lipitor]) 80 mg PO HS [facility] Sodium Chloride (Sodium Chloride 0.9%) 1,000 mls @ 125 mls/hr IV .Q8H [facility] Stop: 05/26/17 02:26 Last Admin: 05/25/17 18:37 Dose: 125 mls/hr Sodium Chloride (Sodium Chloride 0.9%) 1,000 mls @ 125 mls/hr IV .Q8H [facility] Stop: 05/26/17 18:56 Levetiracetam (Keppra) 500 mg PO DAILY [facility] Losartan Potassium (Cozaar) 25 mg PO DAILY [facility] Ondansetron HCl (Zofran Inj) 4 mg IVP Q6 PRN PRN Reason: Nausea/Vomiting Tamsulosin HCl (Flomax) 0.4 mg PO HS [facility] Physical Exam - Constitutional Appears: Non-toxic, No Acute Distress, Older Than Stated Age - Head Exam Head Exam: ATRAUMATIC, NORMAL INSPECTION, NORMOCEPHALIC - Eye Exam Eye Exam: EOMI - ENT Exam ENT Exam: Mucous Membranes Moist - Respiratory Exam Respiratory Exam: NORMAL BREATHING PATTERN. absent: Accessory Muscle Use, Respiratory Distress - Cardiovascular Exam Cardiovascular Exam: RRR. absent: JVD - GI/Abdominal Exam GI & Abdominal Exam: Soft. absent: Distended, Firm, Guarding, Rebound, Rigid, Tenderness - Extremities Exam Extremities exam: Positive for: normal inspection. Negative for: calf tenderness - Back Exam Back exam: NORMAL INSPECTION - Neurological Exam Neurological exam: Alert - Skin Skin Exam: Dry, Intact, Normal Color, Warm Results - Vital Signs Recent Vital Signs: Last Vital Signs Temp 98.5 F 05/25/17 21:09 Pulse 67 05/25/17 21:09 Resp 18 05/25/17 21:09 BP 133/77 05/25/17 21:09 Pulse Ox 100 05/25/17 21:09 - Labs Result Diagrams: 05/25/17 17:15 05/25/17 17:15 Labs: Laboratory Results - last 24 hr 05/25/17 05/25/17 17:15 17:15 WBC 7.5 D RBC 4.01 L Hgb 12.5 Hct 36.4 MCV 90.8 MCH 31.1 H MCHC 34.2 RDW 13.0 Plt Count 210 MPV 8.7 Neut % (Auto) 67.7 Lymph % (Auto) 20.8 Lassen % (Auto) 9.5 Eos % (Auto) 1.5 Baso % (Auto) 0.5 Neut # (Auto) 5.0 Lymph # (Auto) 1.5 Lassen # (Auto) 0.7 Eos # (Auto) 0.1 Baso # (Auto) 0.0 Sodium 143 Potassium 4.2 Chloride 97 L Carbon Dioxide 27 Anion Gap 23 H BUN 18 Creatinine 0.7 L Est GFR ( Amer) > 60 Est GFR (Non-Af Amer) > 60 Random Glucose 150 H Calcium 9.6 Total Bilirubin 0.4 AST 48 ALT 48 Alkaline Phosphatase 67 Total Protein 7.5 Albumin 4.0 Globulin 3.5 Albumin/Globulin Ratio 1.1 Assessment & Plan - Assessment and Plan (Free Text) Assessment: 62yo M w hx of CVA with residual right-sided weakness and aphasia here for evaluation of long-standing diarrhea, now with constipation for 4 days and lethargy. Surgery consulted for abnormal CT findings. - CT abd/pelvis noted. No evidence of colitis or bowel obstruction Plan: - No plans for acute surgical intervention - Continue current medical management - Diet as tolerated Further recs as per Dr. Nia Brady PGY1 surgery pager: [phone] <Tesfaye Kramer - Last Filed: 05/26/17 09:53> History of Present Illness - History of Present Illness History of Present Illness: Patient was seen and examined at the bedside. Agree with resident's note above. Denies any abdominal pain at present time. Meds - Medications Medications: Current Medications Aspirin (Ecotrin) 81 mg PO DAILY [facility] Last Admin: 05/26/17 08:14 Dose: 81 mg Atorvastatin Calcium (Lipitor) 80 mg PO HS [facility] Last Admin: 05/26/17 08:15 Dose: Not Given Cholecalciferol (Vitamin D) 1,000 intlu PO QWK [facility] Sodium Chloride (Sodium Chloride 0.9%) 1,000 mls @ 125 mls/hr IV .Q8H [facility] Stop: 05/26/17 18:56 Last Admin: 05/26/17 03:11 Dose: Not Given Levetiracetam (Keppra) 500 mg PO DAILY [facility] Last Admin: 05/26/17 08:13 Dose: 500 mg Losartan Potassium (Cozaar) 25 mg PO DAILY [facility] Last Admin: 05/26/17 08:14 Dose: 25 mg Metformin HCl (Glucophage) 500 mg PO BID [facility] Last Admin: 05/26/17 08:14 Dose: 500 mg Metoclopramide HCl (Reglan) 10 mg IVP Q6 PRN PRN Reason: Nausea/Vomiting Ondansetron HCl (Zofran Inj) 4 mg IVP Q6 PRN PRN Reason: Nausea/Vomiting Last Admin: 05/25/17 22:49 Dose: 4 mg Sitagliptin Phosphate (Januvia) 100 mg PO DAILY [facility] Last Admin: 05/26/17 08:13 Dose: 100 mg Tamsulosin HCl (Flomax) 0.4 mg PO HS [facility] Last Admin: 05/25/17 22:20 Dose: 0.4 mg Results - Vital Signs Recent Vital Signs: Last Vital Signs Temp 97.9 F 05/26/17 08:24 Pulse 78 05/26/17 08:24 Resp 20 05/26/17 08:24 BP 135/78 05/26/17 08:24 Pulse Ox 98 05/26/17 08:24 - Labs Result Diagrams: 05/26/17 05:35 05/26/17 05:35 Labs: Laboratory Results - last 24 hr 05/25/17 05/25/17 05/26/17 17:15 17:15 05:25 WBC 7.5 D RBC 4.01 L Hgb 12.5 Hct 36.4 MCV 90.8 MCH 31.1 H MCHC 34.2 RDW 13.0 Plt Count 210 MPV 8.7 Neut % (Auto) 67.7 Lymph % (Auto) 20.8 Lassen % (Auto) 9.5 Eos % (Auto) 1.5 Baso % (Auto) 0.5 Neut # (Auto) 5.0 Lymph # (Auto) 1.5 Lassen # (Auto) 0.7 Eos # (Auto) 0.1 Baso # (Auto) 0.0 Sodium 143 Potassium 4.2 Chloride 97 L Carbon Dioxide 27 Anion Gap 23 H BUN 18 Creatinine 0.7 L Est GFR ( Amer) > 60 Est GFR (Non-Af Amer) > 60 POC Glucose (mg/dL) 96 Random Glucose 150 H Calcium 9.6 Total Bilirubin 0.4 AST 48 ALT 48 Alkaline Phosphatase 67 Total Protein 7.5 Albumin 4.0 Globulin 3.5 Albumin/Globulin Ratio 1.1 05/26/17 05/26/17 05:35 05:35 WBC 7.8 RBC 3.87 L Hgb 12.1 Hct 34.9 L MCV 90.2 MCH 31.3 H MCHC 34.7 RDW 12.7 Plt Count 190 MPV 8.6 Neut % (Auto) 65.4 Lymph % (Auto) 21.6 Lassen % (Auto) 11.0 H Eos % (Auto) 1.6 Baso % (Auto) 0.4 Neut # (Auto) 5.1 Lymph # (Auto) 1.7 Lassen # (Auto) 0.9 H Eos # (Auto) 0.1 Baso # (Auto) 0.0 Sodium 143 Potassium 4.5 Chloride 99 Carbon Dioxide 28 Anion Gap 21 H BUN 14 Creatinine 0.7 L Est GFR ( Amer) > 60 Est GFR (Non-Af Amer) > 60 POC Glucose (mg/dL) Random Glucose 108 Calcium 9.3 Total Bilirubin 0.5 AST 30 ALT 52 Alkaline Phosphatase 61 Total Protein 7.2 Albumin 3.8 Globulin 3.5 Albumin/Globulin Ratio 1.1 - Imaging and Cardiology CT scan - abdomen Status: Image reviewed by me, Report reviewed by me Assessment & Plan - Assessment and Plan (Free Text) Plan: - No evidence of acute appendicitis on CT scan - Advance diet as tolerated - No general surgery intervention at present time - Continue care as per medical team - General surgery will sign off - Please re-consult as needed
[2017-05-25] MEDS ORDERED: Patient's Own Med (Atorvastatin [Lipitor] 80 MG) PO SCH (22:00)
[2017-05-25 22:11] VITALS: O2SAT 98
[2017-05-25] MEDS: Sodium Chloride 0.9% 1,000 ML IV SCH (22:28)
[2017-05-26] MEDS: Sodium Chloride 0.9% 1,000 ML IV SCH ×2 (03:11→16:08)
[2017-05-26 06:44] LABS: BASO % 0.4 % (0.0-2.0); EOS # 0.1 K/uL (0.0-0.7); EOS % 1.6 % (0.0-4.0); HEMOGLOBIN 12.1 g/dL (12.0-18.0); LYMPH # 1.7 K/uL (1.0-4.3); LYMPH % 21.6 % (20.0-40.0); MEAN CELL VOLUME 90.2 fl (80.0-94.0); MEAN CORPUSCULAR HEMOGLOBIN 31.3 pg (27.0-31.0); MEAN CORPUSCULAR HGB CONC 34.7 g/dL (33.0-37.0); MEAN PLATELET VOLUME 8.6 fl (7.2-11.7); MONO # 0.9 K/uL (0.0-0.8); NEUT # 5.1 K/uL (1.8-7.0); NEUT % 65.4 % (50.0-75.0); NRBC % 0.1 % (0.0-0.0); RBC 3.87 Mil/uL (4.40-5.90); RED CELL DISTRIBUTION WIDTH 12.7 % (11.5-14.5); WHITE BLOOD COUNT 7.8 K/uL (4.8-10.8)
[2017-05-26 06:53] LABS: ALB/GLOB RATIO 1.1 (1.0-2.1); ALBUMIN 3.8 g/dL (3.5-5.0); ALT/SGPT 52 U/L (21-72); AST/SGOT 30 U/L (17-59); BLOOD UREA NITROGEN 14 mg/dl (9-20); CALCIUM 9.3 mg/dL (8.4-10.2); GFR AFRICAN-AMERICAN > 60; GFR NON-AFRICAN AMERICAN > 60
--- NOTE | 2017-05-26 07:35 | CP.PCM.PN ---
<Vinay Serrano - Last Filed: 05/26/17 07:46> Subjective - Date & Time of Evaluation Date of Evaluation: 05/26/17 Time of Evaluation: 07:00 - Subjective Subjective: General Surgery Note- Dr. Kramer 62 y.o male seen and evaluated at bedside. not at bedside during visitiation. Patient seen resting comfortably in bed and in NAD. Patient reports pain/discomfort to upper abdomen. Denies nausea, fever, shortness of breath, chest pain, or chills during visitation. Reports having diarrhea. Objective - Vital Signs/Intake and Output Vital Signs (last 24 hours): Temp Pulse Resp BP Pulse Ox 97.7 F 69 20 125/75 98 05/26/17 00:23 05/26/17 02:11 05/26/17 02:11 05/26/17 00:23 05/26/17 00:23 - Medications Medications: Current Medications Aspirin (Ecotrin) 81 mg PO DAILY [facility] Atorvastatin Calcium (Lipitor) 80 mg PO HS [facility] Cholecalciferol (Vitamin D) 1,000 intlu PO QWK [facility] Sodium Chloride (Sodium Chloride 0.9%) 1,000 mls @ 125 mls/hr IV .Q8H [facility] Stop: 05/26/17 18:56 Last Admin: 05/26/17 03:11 Dose: Not Given Levetiracetam (Keppra) 500 mg PO DAILY [facility] Losartan Potassium (Cozaar) 25 mg PO DAILY [facility] Metformin HCl (Glucophage) 500 mg PO BID [facility] Metoclopramide HCl (Reglan) 10 mg IVP Q6 PRN PRN Reason: Nausea/Vomiting Ondansetron HCl (Zofran Inj) 4 mg IVP Q6 PRN PRN Reason: Nausea/Vomiting Last Admin: 05/25/17 22:49 Dose: 4 mg Sitagliptin Phosphate (Januvia) 100 mg PO DAILY [facility] Tamsulosin HCl (Flomax) 0.4 mg PO HS [facility] Last Admin: 05/25/17 22:20 Dose: 0.4 mg - Labs Labs: 05/26/17 05:35 05/26/17 05:35 - Constitutional Appears: Non-toxic, No Acute Distress - Head Exam Head Exam: NORMAL INSPECTION, NORMOCEPHALIC - ENT Exam ENT Exam: Mucous Membranes Moist - Respiratory Exam Respiratory Exam: NORMAL BREATHING PATTERN - Cardiovascular Exam Cardiovascular Exam: +S1, +S2. absent: JVD - GI/Abdominal Exam GI & Abdominal Exam: Soft. absent: Distended, Firm, Guarding, Rigid, Tenderness , Mass, Organomegaly Additional comments: No pain elicited or tenderness with palpation to the entire abdomen - Extremities Exam Extremities Exam: absent: Calf Tenderness - Back Exam Back Exam: NORMAL INSPECTION - Neurological Exam Neurological Exam: Awake - Psychiatric Exam Psychiatric exam: Normal Affect, Normal Mood - Skin Skin Exam: Dry, Intact, Normal Color, Warm Assessment and Plan - Assessment and Plan (Free Text) Assessment: 62yo M w hx of CVA with residual right-sided weakness and aphasia here for evaluation of long-standing diarrhea, now with constipation for [address] abnormalities - CT abd/pelvis noted. No evidence of colitis or bowel obstruction Plan: - No plans for acute surgical intervention - Continue current medical management - Diet as tolerated Further recs as per Dr. Nia Serrano DPM PGY-1 <Tesfaye Kramer - Last Filed: 05/26/17 09:56> Subjective - Date & Time of Evaluation Time of Evaluation: 09:20 - Subjective Subjective: Patient was seen and examined at the bedside. Agree with resident's note above. Currently denies any abdominal pain. Objective - Vital Signs/Intake and Output Vital Signs (last 24 hours): Temp Pulse Resp BP Pulse Ox 97.9 F 78 20 135/78 98 05/26/17 08:24 05/26/17 08:24 05/26/17 08:24 05/26/17 08:24 05/26/17 08:24 - Medications Medications: Current Medications Aspirin (Ecotrin) 81 mg PO DAILY [facility] Last Admin: 05/26/17 08:14 Dose: 81 mg Atorvastatin Calcium (Lipitor) 80 mg PO HS [facility] Last Admin: 05/26/17 08:15 Dose: Not Given Cholecalciferol (Vitamin D) 1,000 intlu PO QWK [facility] Sodium Chloride (Sodium Chloride 0.9%) 1,000 mls @ 125 mls/hr IV .Q8H [facility] Stop: 05/26/17 18:56 Last Admin: 05/26/17 03:11 Dose: Not Given Levetiracetam (Keppra) 500 mg PO DAILY [facility] Last Admin: 05/26/17 08:13 Dose: 500 mg Losartan Potassium (Cozaar) 25 mg PO DAILY [facility] Last Admin: 05/26/17 08:14 Dose: 25 mg Metformin HCl (Glucophage) 500 mg PO BID [facility] Last Admin: 05/26/17 08:14 Dose: 500 mg Metoclopramide HCl (Reglan) 10 mg IVP Q6 PRN PRN Reason: Nausea/Vomiting Ondansetron HCl (Zofran Inj) 4 mg IVP Q6 PRN PRN Reason: Nausea/Vomiting Last Admin: 05/25/17 22:49 Dose: 4 mg Sitagliptin Phosphate (Januvia) 100 mg PO DAILY [facility] Last Admin: 05/26/17 08:13 Dose: 100 mg Tamsulosin HCl (Flomax) 0.4 mg PO [facility] Last Admin: 05/25/17 22:20 Dose: 0.4 mg - Labs Labs: 05/26/17 05:35 05/26/17 05:35 Assessment and Plan - Assessment and Plan (Free Text) Plan: - Advance diet as tolerated - No general surgery intervention at present time - Continue care as per medical team - General surgery will sign off - Please re-consult as needed
--- NOTE | 2017-05-26 07:37 | CARD ---
APPROVED REPORT EKG Measurement Heart [id number] <Conclusion> Normal sinus rhythm Septal infarct, age undetermined Abnormal ECG
--- NOTE | 2017-05-26 07:49 | CP.PCM.HP ---
History of Present Illness - History of Present Illness History of Present Illness: pt admitted for intractable vomiting, weakness. pt is s/p cva. at present no f /c, n/v. pt reports no bm to this provider but surgical progress note states pt had siarrhea. bw noted. imaging noted w/ ?? enlarged appendix. surgical consult appriciated w/ o recommendations for surgery at is time. Present on Admission - Present on Admission Any Indicators Present on Admission: No Review of Systems - Gastrointestinal Gastrointestinal: As Per HPI, Nausea, Vomiting Past Patient History - Tetanus Immunizations Tetanus Immunization: Unknown - Past Medical History & Family History Past Medical History?: Yes - Past Social History Smoking Status: Never Smoked - CARDIAC Hx Cardiac Disorders: Yes Hx Hypercholesterolemia: Yes Hx Hypertension: Yes - PULMONARY Hx Respiratory Disorders: No - NEUROLOGICAL Hx Neurological Disorder: Yes HX Cerebrovascular Accident: Yes (rt. sided weakness) Hx Seizures: Yes (Seizure disorder) - HEENT Hx HEENT Problems: No - RENAL Hx Chronic Kidney Disease: No - ENDOCRINE/METABOLIC Hx Endocrine Disorders: Yes - HEMATOLOGICAL/ONCOLOGICAL Hx Human Immunodeficiency Virus (HIV): No - INTEGUMENTARY Hx Dermatological Problems: No - MUSCULOSKELETAL/RHEUMATOLOGICAL Hx Falls: No - GASTROINTESTINAL Hx Gastrointestinal Disorders: Yes HX Swallowing Problems: Yes (POST PEG TUBE 07/28/15) - GENITOURINARY/GYNECOLOGICAL Hx Genitourinary Disorders: Yes Hx Incontinence: Yes - PSYCHIATRIC Hx Substance Use: No - SURGICAL HISTORY Hx Surgeries: Yes Other/Comment: PEG Tube placement and removal 2015 - ANESTHESIA Hx Anesthesia: Yes Hx Anesthesia Reactions: No Hx Malignant Hyperthermia: No Has any member of the family had a problem w/ anesthesia?: No Meds Allergies/Adverse Reactions: Allergies Allergy/AdvReac Type Severity Reaction Status Date / Time No Known Allergies Allergy Verified 07/28/15 22:01 Physical Exam - Constitutional Appears: Well, Non-toxic, No Acute Distress - Head Exam Head Exam: ATRAUMATIC, NORMAL INSPECTION, NORMOCEPHALIC - Eye Exam Eye Exam: EOMI, Normal appearance, PERRL Pupil Exam: NORMAL ACCOMODATION, PERRL - ENT Exam ENT Exam: Mucous Membranes Moist, Normal Exam - Neck Exam Neck exam: Positive for: Normal Inspection - Respiratory Exam Respiratory Exam: Clear to Auscultation Bilateral, NORMAL BREATHING PATTERN - Cardiovascular Exam Cardiovascular Exam: REGULAR RHYTHM, RRR, +S1, +S2 - GI/Abdominal Exam GI & Abdominal Exam: Normal Bowel Sounds, Soft. absent: Tenderness - Extremities Exam Extremities exam: Positive for: full ROM, normal capillary refill, normal inspection, pedal pulses present - Back Exam Back exam: FULL ROM, NORMAL INSPECTION - Neurological Exam Neurological exam: Alert, CN II-XII Intact, Normal Gait, Oriented x3, Reflexes Normal - Psychiatric Exam Psychiatric exam: Normal Affect, Normal Mood - Skin Skin Exam: Dry, Intact, Normal Color, Warm Results - Vital Signs Recent Vital Signs: Last Vital Signs Temp 97.7 F 05/26/17 00:23 Pulse 69 05/26/17 02:11 Resp 20 05/26/17 02:11 BP 125/75 05/26/17 00:23 Pulse Ox 98 05/26/17 00:23 - Labs Result Diagrams: 05/26/17 05:35 05/26/17 05:35 Labs: Laboratory Results - last 24 hr 05/25/17 05/25/17 05/26/17 17:15 17:15 05:25 WBC 7.5 D RBC 4.01 L Hgb 12.5 Hct 36.4 MCV 90.8 MCH 31.1 H MCHC 34.2 RDW 13.0 Plt Count 210 MPV 8.7 Neut % (Auto) 67.7 Lymph % (Auto) 20.8 [place] % (Auto) 9.5 Eos % (Auto) 1.5 Baso % (Auto) 0.5 Neut # (Auto) 5.0 Lymph # (Auto) 1.5 [place] # (Auto) 0.7 Eos # (Auto) 0.1 Baso # (Auto) 0.0 Sodium 143 Potassium 4.2 Chloride 97 L Carbon Dioxide 27 Anion Gap 23 H BUN 18 Creatinine 0.7 L Est GFR ( Amer) > 60 Est GFR (Non-Af Amer) > 60 POC Glucose (mg/dL) 96 Random Glucose 150 H Calcium 9.6 Total Bilirubin 0.4 AST 48 ALT 48 Alkaline Phosphatase 67 Total Protein 7.5 Albumin 4.0 Globulin 3.5 Albumin/Globulin Ratio 1.1 05/26/17 05/26/17 05:35 05:35 WBC 7.8 RBC 3.87 L Hgb 12.1 Hct 34.9 L MCV 90.2 MCH 31.3 H MCHC 34.7 RDW 12.7 Plt Count 190 MPV 8.6 Neut % (Auto) 65.4 Lymph % (Auto) 21.6 [place] % (Auto) 11.0 H Eos % (Auto) 1.6 Baso % (Auto) 0.4 Neut # (Auto) 5.1 Lymph # (Auto) 1.7 [place] # (Auto) 0.9 H Eos # (Auto) 0.1 Baso # (Auto) 0.0 Sodium 143 Potassium 4.5 Chloride 99 Carbon Dioxide 28 Anion Gap 21 H BUN 14 Creatinine 0.7 L Est GFR ( Amer) > 60 Est GFR (Non-Af Amer) > 60 POC Glucose (mg/dL) Random Glucose 108 Calcium 9.3 Total Bilirubin 0.5 AST 30 ALT 52 Alkaline Phosphatase 61 Total Protein 7.2 Albumin 3.8 Globulin 3.5 Albumin/Globulin Ratio 1.1 Assessment & Plan (1) Intractable vomiting with nausea Assessment and Plan: zofran/reglan prn, ivf, surgical consult Status: Acute (2) Abnormal CAT scan Assessment and Plan: surgical consult for enlarged appendix. no further intervention planned Status: Acute (3) DVT prophylaxis Assessment and Plan: scd and ae hose hold anticoag for now Status: Acute (4) History of CVA (cerebrovascular accident) Assessment and Plan: conth ome meds Status: Chronic (5) Weakness Assessment and Plan: pt/ot ivf monitor Status: Acute Decision To Admit - Pt Status Changed To: Hospital Disposition Of: Inpatient - Admit Certification Admit to Inpatient:: After my assessment, the patient will require hospitalization for at least two midnights. This is because of the severity of symptoms shown, intensity of services needed, and/or the medical risk in this patient being treated as an outpatient. - . Bed Request Type: Med/Surg Admitting Physician: Ly Soler
--- NOTE | 2017-05-26 08:37 | CT ---
PROCEDURE: CT Abdomen and Pelvis with contrast HISTORY: Vomiting, constipation COMPARISON: None. TECHNIQUE: Contrast dose: 95 cc Omnipaque 300 Radiation dose: Total exam DLP = 285.46 mGy-cm. This CT exam was performed using one or more of the following dose reduction techniques: Automated exposure control, adjustment of the mA and/or kV according to patient size, and/or use of iterative reconstruction technique. FINDINGS: LOWER THORAX: Unremarkable. LIVER: Unremarkable. No gross lesion or ductal dilatation. GALLBLADDER AND BILE DUCTS: Unremarkable. PANCREAS: Unremarkable. No gross lesion or ductal dilatation. SPLEEN: Unremarkable. ADRENALS: Unremarkable. No mass. KIDNEYS AND URETERS: Unremarkable. No hydronephrosis. No solid mass. VASCULATURE: Unremarkable. No aortic aneurysm. BOWEL: Mild retained feces. No bowel obstruction. No abnormal bowel loops. APPENDIX: Not identified. No secondary findings to suggest acute appendicitis. PERITONEUM: Unremarkable. No free fluid. No free air. LYMPH NODES: Unremarkable. No enlarged lymph nodes. BLADDER: Unremarkable. REPRODUCTIVE: Normal prostate BONES: No acute fracture. OTHER FINDINGS: None. IMPRESSION: Unremarkable examination. Mild retained feces common nonspecific. Appendix not visualized. Preliminary interpretation of this examination was reported by [facility] at 8:12 p.m. on 05/25/2017. There is concurrence of this report with the preliminary interpretation. Please note that the appendix was not visualized on this examination. This differs with the preliminary interpretation of this examination though in neither case was acute appendicitis suspected. Go to move
[2017-05-26] MEDS ORDERED: ALOGLIPTIN BENZ PO SCH (09:00)
[2017-05-26] MEDS ORDERED: METFORMIN HCL PO SCH (09:00)
[2017-05-26 15:46] VITALS: BP 124/74; PULSE 83; RESP 19; TEMP 98.2
== END 2017-05-26 17:25 | disposition home or self-care (01) | DRG 182 ==
LOC: H.ER 16:04 → H.ERHOLD 18:43 → H.MEDSURG1 21:53
PROVIDERS: ADMIT Family Medicine; ATTEND Family Medicine
DX: K59.00 Constipation, unspecified (principal); R32 Unspecified urinary incontinence; R53.1 Weakness; R11.2 Nausea with vomiting, unspecified; I69.351 Hemiplegia and hemiparesis following cerebral infarction affecting right dominant side; I69.320 Aphasia following cerebral infarction; E11.9 Type 2 diabetes mellitus without complications; I10 Essential (primary) hypertension; E78.00 Pure hypercholesterolemia, unspecified; E78.5 Hyperlipidemia, unspecified; G40.909 Epilepsy, unspecified, not intractable, without status epilepticus; I25.10 Atherosclerotic heart disease of native coronary artery without angina pectoris; R93.5 Abnormal findings on diagnostic imaging of other abdominal regions, including retroperitoneum

== ENCOUNTER 2018-07-09 17:56 | Emergency (ER) | payer MEDICAID ==
[2018-07-09 17:56] VITALS: BMI 23.3
[2018-07-09 18:02] VITALS: RESP 18; O2SAT 97
[2018-07-09] MEDS ORDERED: Sodium Chloride 0.9% 1,000 ML IV STA (18:30)
[2018-07-09 19:00] LABS: BASO % 0.4 % (0.0-2.0); EOS # 0.1 K/uL (0.0-0.7); EOS % 1.4 % (0.0-4.0); HEMOGLOBIN 12.9 g/dL (12.0-18.0); LYMPH # 1.3 K/uL (1.0-4.3); LYMPH % 12.2 % (20.0-40.0); MEAN CELL VOLUME 89.6 fl (80.0-94.0); MEAN CORPUSCULAR HEMOGLOBIN 30.5 pg (27.0-31.0); MEAN PLATELET VOLUME 8.4 fl (7.2-11.7); MONO # 0.8 K/uL (0.0-0.8); MONO % 7.4 % (0.0-10.0); NEUT # 8.3 K/uL (1.8-7.0); NEUT % 78.6 % (50.0-75.0); NRBC % 0.1 % (0.0-0.0); RBC 4.22 Mil/uL (4.40-5.90); RED CELL DISTRIBUTION WIDTH 14.4 % (11.5-14.5); WHITE BLOOD COUNT 10.6 K/uL (4.8-10.8)
[2018-07-09 19:09] LABS: ALB/GLOB RATIO 1.4 (1.0-2.1); ALBUMIN 4.4 g/dL (3.5-5.0); ALT/SGPT 52 U/L (21-72); AST/SGOT 46 U/L (17-59); BLOOD UREA NITROGEN 25 mg/dl (9-20); CALCIUM 9.5 mg/dL (8.4-10.2); GFR NON-AFRICAN AMERICAN > 60
--- NOTE | 2018-07-09 19:39 | ED PDOC ---
HPI: Abdomen Time Seen by Provider: 07/09/18 18:30 Chief Complaint (Nursing): GI Problem Chief Complaint (Provider): GI Problem History Per: Patient, Family History/Exam Limitations: no limitations Onset/Duration Of Symptoms: Hrs Current Symptoms Are (Timing): Still Present Additional Complaint(s): 63 y/o male with a PMHx of a CVA (resulting with aphasia and right sided weakness), HTN and DM presents to the ED for evaluation of nausea and vomiting s/p laser eye surgery earlier today. Patient reports of having a laser eye surgery to the right eye performed earlier this morning by Dr. Tolbert in [place], [place] for "bleeding behind the eye". At this time, patient's eye is currently bandaged. On arrival home, patient and report of eating lunch consisting of chicken and vegetables. Shortly after, patient had two episodes of non-bloody vomiting without abdominal pain, dizziness, syncope and fever. Patient notes he does not currently feel nauseous. Patient states he is currently only feeling mild discomfort to the right eye. states patient is due to wear a patch tonight and remove tomorrow. Of note, patient does not take any blood thinning medications except for Aspirin. PMD: no provider Past Medical History Reviewed: Historical Data, Nursing Documentation, Vital Signs Vital Signs: Last Vital Signs Temp 97.8 F 07/09/18 17:58 Pulse 78 07/09/18 17:58 Resp 18 07/09/18 17:58 BP 138/81 07/09/18 17:58 Pulse Ox 97 07/09/18 17:58 Primary Care Provider: Benji Moran - Medical History PMH: CVA (with right sided weakness), Diabetes, HTN, Hypercholesterolemia, Seizures (Seizure disorder) Denies: HIV, Chronic Kidney Disease - Surgical History Other surgeries: right laser eye surgery - Family History Family History: States: Unknown Family Hx - Living Arrangements Living Arrangements: With Family () - Immunization History Hx Tetanus Toxoid Vaccination: No Hx Influenza Vaccination: No Hx Pneumococcal Vaccination: No - Home Medications Home Medications: Ambulatory Orders Medication Instructions Recorded Atorvastatin [Lipitor] 80 mg PO HS 08/25/15 Tamsulosin [Flomax] 0.4 mg PO HS 08/25/15 Aspirin [Ecotrin] 81 mg PO DAILY tabec 09/17/15 Alogliptin Luis Alberto/Metformin HCl 1 tab PO BID 05/25/17 [Alogliptin-Metformin 12.5-500] Cholecalciferol [Vitamin D 1000 IU] 1 tab PO QWK 05/25/17 Levetiracetam [Roweepra] 500 mg PO DAILY 05/25/17 Losartan [Cozaar] 25 mg PO DAILY 05/25/17 Famotidine [Pepcid] 20 mg PO Q12 #14 tab 07/09/18 Ondansetron ODT [Zofran ODT] 4 mg PO Q6 PRN #8 odt 07/09/18 - Allergies Allergies/Adverse Reactions: Allergies Allergy/AdvReac Type Severity Reaction Status Date / Time No Known Allergies Allergy Verified 07/28/15 22:01 Review of Systems ROS Statement: Except As Marked, All Systems Reviewed And Found Negative Gastrointestinal: Positive for: Vomiting Physical Exam - Reviewed Nursing Documentation Reviewed: Yes Vital Signs Reviewed: Yes - Physical Exam Appears: Positive for: No Acute Distress Head Exam: Positive for: ATRAUMATIC, NORMOCEPHALIC Skin: Positive for: Normal Color, Warm, Dry Eye Exam: Positive for: Other (Right eye is patched. ) ENT: Positive for: Normal ENT Inspection Neck: Positive for: Normal, Painless ROM, Supple Cardiovascular/Chest: Positive for: Regular Rate, Rhythm. Negative for: Murmur Respiratory: Positive for: Normal Breath Sounds. Negative for: Respiratory Distress Gastrointestinal/Abdominal: Positive for: Normal Exam, Soft. Negative for: Tenderness Extremity: Positive for: Normal ROM Neurological/Psych: Positive for: Awake, Alert, Oriented (x3). Negative for: Motor/Sensory Deficits - Laboratory Results Result Diagrams: 07/09/18 18:41 07/09/18 18:41 Lab Results: Troponin I < 0.0120 ng/mL (0.00-0.120) 07/09/18 18:41 Total Bilirubin 0.4 mg/dl (0.2-1.3) 07/09/18 18:41 AST 46 U/L (17-59) 07/09/18 18:41 ALT 52 U/L (21-72) 07/09/18 18:41 Alkaline Phosphatase 94 U/L (38-126) 07/09/18 18:41 Total Protein 7.6 G/DL (6.3-8.2) 07/09/18 18:41 Albumin 4.4 g/dL (3.5-5.0) 07/09/18 18:41 Globulin 3.2 gm/dL (2.2-3.9) 07/09/18 18:41 Albumin/Globulin Ratio 1.4 (1.0-2.1) 07/09/18 18:41 - ECG O2 Sat by Pulse Oximetry: 97 (RA) Pulse Ox Interpretation: Normal Medical Decision Making Medical Decision Making: Time: 1830 A/P: -- Will obtain basic blood work. -- EKG -- Will give zofran and IV Fluid bolous. -- EKG -- CMP -- Troponin I -- CBC with Differentials -- CXR Portable -- Glucose, POC -- Sodium Chloride IV 1000 mls/hr -- Zofran Inj 4 mg IV -- Glucose, Blood, POC -- Urinalysis Time: 1900 -- Patient endorsed to Dr. Fontanez, pending ER workup, re-evaluation and final ER disposition. Scribe Attestation: Documented by Zion Elliott, acting as a scribe for Sigifredo Moreira III, DO. Provider Scribe Attestation: All medical record entries made by the Scribe were at my direction and personally dictated by me. I have reviewed the chart and agree that the record accurately reflects my personal performance of the history, physical exam, me dical decision making, and the department course for this patient. I have also personally directed, reviewed, and agree with the discharge instructions and disposition. Disposition - Clinical Impression Clinical Impression: Gastritis - Patient ED Disposition Is Patient to be Admitted: Transfer of Care - Disposition Disposition: Transfer of Care Disposition Time: 19:00 Condition: FAIR Prescriptions: Famotidine [Pepcid] 20 mg PO Q12 #14 tab Ondansetron ODT [Zofran ODT] 4 mg PO Q6 PRN #8 odt PRN Reason: Nausea/Vomiting Instructions: Gastritis Forms: [facility] (Urdu) Patient Signed Over To: Wali Fontanez Handoff Comments: pending ER workup, re-evaluation and final ER disposition.
--- NOTE | 2018-07-09 19:44 | ED PDOC ---
- Laboratory Results Result Diagrams: 07/09/18 18:41 07/09/18 18:41 Lab Results: Troponin I < 0.0120 ng/mL (0.00-0.120) 07/09/18 18:41 Total Bilirubin 0.4 mg/dl (0.2-1.3) 07/09/18 18:41 AST 46 U/L (17-59) 07/09/18 18:41 ALT 52 U/L (21-72) 07/09/18 18:41 Alkaline Phosphatase 94 U/L (38-126) 07/09/18 18:41 Total Protein 7.6 G/DL (6.3-8.2) 07/09/18 18: Albumin 4.4 g/dL (3.5-5.0) 07/09/18 18:41 Globulin 3.2 gm/dL (2.2-3.9) 07/09/18 18:41 Albumin/Globulin Ratio 1.4 (1.0-2.1) 07/09/18 18:41 - ECG O2 Sat by Pulse Oximetry: 97 (RA) Medical Decision Making Medical Decision Making: Time: 1899 -- Patient endorsed to provider by Dr. Moreira, pending lab results and reassessment. Time: 2199 --Labs reviewed: (-) significant clinical abnormality. Upon provider reevaluation, patient is medically stable, tolerating PO well, and reports improvement in symptoms. Findings and plan were discussed with patient who ve rbalizes understanding. Patient will be discharged home with Rx for Pepcid and Zofran. Counseling was provided and all questions were answered regarding diagnosis. There is agreement to discharge plan. Return precautions discussed. Clinical Impression: gastritis Scribe Attestation: Documented by Halle Adam, acting as a scribe for Wali Fontanez MD. Provider Scribe Attestation: All medical record entries made by the Scribe were at my direction and personally dictated by me. I have reviewed the chart and agree that the record accurately reflects my personal performance of the history, physical exam, medical decision making, and the department course for this patient. I have also personally directed, reviewed, and agree with the discharge instructions and disposition. Disposition - Clinical Impression Clinical Impression: Gastritis - POA Present On Arrival: None - Disposition Disposition: Routine/Home Disposition Time: 22:00 Condition: FAIR Prescriptions: Famotidine [Pepcid] 20 mg PO Q12 #14 tab Ondansetron ODT [Zofran ODT] 4 mg PO Q6 PRN #8 odt PRN Reason: Nausea/Vomiting Instructions: Gastritis Forms: [facility] (Yoruba)
[2018-07-09 21:25] LABS: URINE BILIRUBIN NEGATIVE (NEGATIVE); URINE BLOOD NEGATIVE (NEGATIVE); URINE CLARITY CLEAR (Clear); URINE COLOR YELLOW (YELLOW); URINE GLUCOSE (UA) >=500 mg/dL (NEGATIVE); URINE LEUKOCYTE ESTERASE NEG Leu/uL (Negative); URINE PROTEIN 30 mg/dL (NEGATIVE); URINE UROBILINOGEN 0.2-1.0 mg/dL (0.2-1.0)
[2018-07-09 22:11] VITALS: BP 127/72; PULSE 73; TEMP 97.9
--- NOTE | 2018-07-10 08:29 | RAD ---
Date of service: 07/09/2018 HISTORY: SOB COMPARISON: No prior. TECHNIQUE: 1 view obtained. FINDINGS: LUNGS: No active pulmonary disease. PLEURA: No significant pleural effusion identified, no pneumothorax apparent. CARDIOVASCULAR: No aortic atherosclerotic calcification present. Normal cardiac size. No pulmonary vascular congestion. OSSEOUS STRUCTURES: No significant abnormalities. VISUALIZED UPPER ABDOMEN: Normal. OTHER FINDINGS: None. IMPRESSION: No active disease.
--- NOTE | 2018-07-10 19:17 | CARD ---
APPROVED REPORT Date of service: 07/09/2018 EKG Measurement Heart [id number] <Conclusion> Normal sinus rhythm Normal ECG
== END 2018-07-09 22:17 | disposition home or self-care (01) ==
LOC: H.ER 17:56
DX: K29.70 Gastritis, unspecified, without bleeding (principal); E11.9 Type 2 diabetes mellitus without complications; E78.00 Pure hypercholesterolemia, unspecified; G40.909 Epilepsy, unspecified, not intractable, without status epilepticus; I10 Essential (primary) hypertension; Z79.82 Long term (current) use of aspirin; Z79.84 Long term (current) use of oral hypoglycemic drugs; Z79.899 Other long term (current) drug therapy
CPT/HCPCS: 71045; 80053; 81003; 82948; 84484; 85025; 93005; 96361; 96374; 99284; J2405; J7030